=== PATIENT | male | born 1955 | race African-American/Black ===

== ENCOUNTER 2017-09-29 09:04 | Emergency (ER) | payer OTHER ==
[~2017-09-29] VITALS: Ht 175.3 cm; Wt 76.0 kg
[~2017-09-29 09:04] MED LIST: ASPI-1159 PO; CARV25TA47 PO; FURO40TA5 PO; QUET25TA PO; SPIR25TA4 PO; WARF5TAB73 PO
[2017-09-29 09:06] VITALS: BP 128/83
== END 2017-09-29 13:49 | disposition home or self-care (01) ==
LOC: ER 09:12
DX: F43.9 Reaction to severe stress, unspecified (principal); F41.9 Anxiety disorder, unspecified; I11.0 Hypertensive heart disease with heart failure; I50.9 Heart failure, unspecified; E78.00 Pure hypercholesterolemia, unspecified; Z95.5 Presence of coronary angioplasty implant and graft; Z90.49 Acquired absence of other specified parts of digestive tract; Z79.01 Long term (current) use of anticoagulants; Z79.82 Long term (current) use of aspirin
CPT/HCPCS: 99284

== ENCOUNTER 2017-12-15 12:17 | Inpatient (IN) | payer OTHER ==
[~2017-12-15] VITALS: Ht 180.3 cm; Wt 104.3 kg
[2017-12-15 19:16] LABS: HEMATOCRIT. 39.6 % (42.0-52.0); HEMOGLOBIN. 13.4 g/dL (14.0-18.0); MEAN CORPUSCULAR HEMOGLOBIN 29.6 pg (28.0-32.0); MEAN CORPUSCULAR VOLUME 87.4 fL (80.0-94.0); MEAN PLATELET VOLUME 7.6 fl (7.4-10.4); PLATELET 117 x1000/uL (130-400); RED BLOOD CELL COUNT 4.53 mill/uL (4.7-6.1); RED CELL DISTRIBUTION WIDTH 16.1 % (11.6-14.6)
[2017-12-15 19:23] LABS: INR 1.4; PROTHROMBIN TIME 14.9 sec (9.4-11.6)
[2017-12-15 19:28] LABS: CHLORIDE 101 mEq/L (98-107)
[2017-12-15 19:33] LABS: TROPONIN I 0.05 ng/mL (0.00-0.04)
[2017-12-15 20:13] LABS: ATYPICAL LYMPHOCYTES 3
[2017-12-15 20:14] LABS: PLATELET ESTIMATE DECREASED
[2017-12-15] MEDS ORDERED: ENOXAPARIN 40MG/0.4ML SYR SUBCUT SCH (20:45)
[2017-12-15] MEDS ORDERED: DOCUSATE SODIUM 100MG CAPSULE PO PRN (20:45)
[2017-12-15] MEDS ORDERED: CLONIDINE 0.1MG TABLET PO PRN (20:45)
[2017-12-15] MEDS ORDERED: KETOROLAC 15MG/ML VIAL IV PRN (20:45)
[2017-12-15] MEDS ORDERED: NITROGLYCERIN 0.4MG TABLET SL SL PRN (20:45)
[2017-12-15] MEDS ORDERED: ACETAMINOPHEN 325MG TABLET PO PRN (20:45)
[2017-12-15] MEDS ORDERED: LORAZEPAM 0.5MG TABLET PO PRN (20:45)
[2017-12-15] MEDS ORDERED: MAGNESIUM/ALUMINUM HYDROXIDE/SIMETHICONE 30ML UDC PO PRN (20:45)
[2017-12-15] MEDS ORDERED: DIPHENHYDRAMINE 50MG/ML VIAL IV PRN (20:45)
[2017-12-15] MEDS ORDERED: GUAIFENESIN 200MG/10ML SUGAR FREE UDC PO PRN (20:45)
[2017-12-15] MEDS ORDERED: ONDANSETRON HCL 4MG/2ML VIAL IV PRN (20:45)
[2017-12-15 21:49] LABS: TOTAL IRON BINDING CAPACITY 316 ug/dL (250-450)
[2017-12-15 22:21] LABS: FOLIC ACID (FOLATE) SERUM 15.6 ng/mL (>5.38)
[2017-12-15 23:06] LABS: CREATINE KINASE MB FRACTION 0.8 ng/mL (0.5-3.6); TROPONIN I 0.05 ng/mL (0.00-0.04)
[2017-12-16] MEDS ORDERED: ZOLPIDEM TARTRATE 5MG TABLET PO PRN (01:39)
[2017-12-16] MEDS ORDERED: NA PHOS,M-B/NA PHOS,DI-BA ENEMA 118ML PR PRN (01:39)
[2017-12-16 01:45] VITALS: BP 113/85
[2017-12-16] MEDS ORDERED: WARFARIN SODIUM 5MG TABLET PO SCH (02:26)
[2017-12-16 04:00] VITALS: BP 123/73
[2017-12-16] MEDS ORDERED: CARVEDILOL 3.125 MG TABLET PO SCH (06:00)
[2017-12-16 07:38] LABS: INR 1.4; PROTHROMBIN TIME 14.5 sec (9.4-11.6)
[2017-12-16] MEDS: IPRATROPIUM/ALBUTEROL 0.5-3(2.5)MG/3ML NEB INH PRN ×2 (08:13→12:17)
[2017-12-16 08:19] LABS: CREATINE KINASE MB FRACTION 0.8 ng/mL (0.5-3.6); TROPONIN I 0.06 ng/mL (0.00-0.04)
[2017-12-16] MEDS ORDERED: FUROSEMIDE 40MG/4ML VIAL IVP SCH (09:00)
[2017-12-16] MEDS ORDERED: ENOXAPARIN 30MG/0.3ML SYR SUBCUT SCH (09:00)
[2017-12-16] MEDS ORDERED: ASPIRIN 325MG EC TABLET PO SCH (09:00)
[2017-12-16] MEDS ORDERED: SPIRONOLACTONE 25MG TABLET PO SCH (09:00)
[2017-12-16] MEDS ORDERED: FAMOTIDINE 20MG/2ML VIAL IV SCH (09:00)
[2017-12-16 11:42] VITALS: BP 95/69
== END 2017-12-16 12:40 | disposition home or self-care (01) | DRG 291 ==
LOC: ER 15:00 → 8WST 20:50 → EDBEDREQ 21:07 → ENRESERV 22:46
PROVIDERS: ADMIT Internal Medicine; ATTEND Internal Medicine
DX: I11.0 Hypertensive heart disease with heart failure (principal); N17.0 Acute kidney failure with tubular necrosis; E44.1 Mild protein-calorie malnutrition; Z79.01 Long term (current) use of anticoagulants; R07.89 Other chest pain; I50.43 Acute on chronic combined systolic (congestive) and diastolic (congestive) heart failure; E78.00 Pure hypercholesterolemia, unspecified; F41.9 Anxiety disorder, unspecified; D64.9 Anemia, unspecified; Z90.49 Acquired absence of other specified parts of digestive tract; Z79.899 Other long term (current) drug therapy; Z79.82 Long term (current) use of aspirin; Z68.32 Body mass index [BMI] 32.0-32.9, adult
CPT/HCPCS: 36415; 71045; 80053; 80061; 82550; 82553; 82607; 82746; 83036; 83540; 83550; 83880; 84484; 85025; 85610; 93005; 93306; 93970; 99285; C1893; J1650; J1940; J3490; J7620

== ENCOUNTER 2017-12-19 12:26 | Emergency (ER) | payer OTHER ==
[~2017-12-19] VITALS: Ht 180.3 cm; Wt 109.0 kg
[~2017-12-19 12:26] MED LIST changes: +WARF-53 PO; -WARF5TAB73 PO
[2017-12-19 12:33] VITALS: BP 155/89
[2017-12-19] MEDS ORDERED: ASPIRIN 81MG TABLET PO STA (16:02)
== END 2017-12-19 18:16 | disposition left against medical advice (07) ==
LOC: ER 15:29 → CANBEDREQ 18:27
DX: R07.89 Other chest pain (principal); I11.0 Hypertensive heart disease with heart failure; I50.9 Heart failure, unspecified; R55 Syncope and collapse; Z79.01 Long term (current) use of anticoagulants; Z79.82 Long term (current) use of aspirin; I44.7 Left bundle-branch block, unspecified; R94.31 Abnormal electrocardiogram [ECG] [EKG]; E78.00 Pure hypercholesterolemia, unspecified; F41.9 Anxiety disorder, unspecified
CPT/HCPCS: 93005; 99283

== ENCOUNTER 2018-07-12 01:07 | Inpatient (IN) | payer OTHER ==
[~2018-07-12] VITALS: Ht 180.3 cm; Wt 98.0 kg
[~2018-07-12 01:07] MED LIST changes: -QUET25TA PO; -SPIR25TA4 PO; +SPIR25TA6 PO
[2018-07-12] MEDS ORDERED: ASPIRIN 81MG TABLET PO ONE (02:00)
[2018-07-12] MEDS ORDERED: FUROSEMIDE 100MG/10ML VIAL IVP ONE (02:30)
[2018-07-12 03:07] LABS: BASOPHILS % 0.8 % (0.0-2.0); EOSINOPHILS % 1.4 % (0.0-5.0); HEMATOCRIT. 38.6 % (42.0-52.0); HEMOGLOBIN. 13.3 g/dL (14.0-18.0); LYMPHOCYTES % 38.3 % (20.0-50.0); MEAN CORPUSCULAR HEMOGLOBIN 29.5 pg (28.0-32.0); MEAN CORPUSCULAR VOLUME 85.9 fL (80.0-94.0); MEAN PLATELET VOLUME 8.7 fl (7.4-10.4); MONOCYTES % 13.9 % (2.0-8.0); NEUTROPHILS % 45.6 % (40.0-76.0); PLATELET 177 x1000/uL (130-400); RED BLOOD CELL COUNT 4.49 mill/uL (4.7-6.1); RED CELL DISTRIBUTION WIDTH 14.7 % (11.6-14.6)
[2018-07-12 03:10] LABS: INR 1.3; PROTHROMBIN TIME 13.1 sec (9.1-11.1)
[2018-07-12 03:19] LABS: CHLORIDE 105 mEq/L (98-107)
[2018-07-12 03:27] LABS: ETHANOL BLOOD < 10 mg/dL
[2018-07-12] MEDS ORDERED: ACETAMINOPHEN 650MG/20.3ML UDC GT PRN (09:15)
[2018-07-12] MEDS ORDERED: ONDANSETRON HCL 4MG/2ML INJ IV PRN (09:15)
[2018-07-12] MEDS ORDERED: MAGNESIUM/ALUMINUM HYDROXIDE/SIMETHICONE 30ML UDC PO PRN (09:15)
[2018-07-12] MEDS ORDERED: HYDROCODONE/ACETAMINOPHEN 5/325MG TABLET PO PRN (09:15)
[2018-07-12] MEDS ORDERED: ACETAMINOPHEN 650MG SUPP PR PRN (09:15)
[2018-07-12 09:30] VITALS: BP_SYST 141; BP_SYST 142; BP_DIAS 101
[2018-07-12 09:41] LABS: BG BASE EXCESS 2.8 mmol/L (-2.0-2.0); BG CARBOXYHEMOGLOBIN 0.5 % (0.5-1.5); BG DEOXYHEMOGLOBIN 4.7 % (0.0-5.0); BG HCO3 ACT 26.1 mmol/L (22.0-26.0); BG METHEMOGLOBIN 0.4 % (0.0-1.5); BG OXYGEN SATURATION 95.3 % (92.0-98.5); BG OXYHEMOGLOBIN 94.4 % (94.0-97.0); BG PH 7.478 (7.350-7.450); BG PO2 76.3 mmHg (75.0-100.0); BG SAMPLE SITE RIGHT BRACHIAL; BG TOTAL HEMOGLOBIN 14.9 g/dL (12.0-18.0); BG VENT MODE ROOM AIR
[2018-07-12] MEDS: ACETAMINOPHEN 325MG TABLET PO PRN ×2 (11:35→17:13)
[2018-07-12 12:00] VITALS: BP 151/111
[2018-07-12] MEDS: IPRATROPIUM/ALBUTEROL 0.5-3(2.5)MG/3ML NEB INH SCH ×2 (14:00→21:35)
[2018-07-12] MEDS ORDERED: LIDOCAINE HCL/PF 1% 2ML VIAL ONE (14:37)
[2018-07-12] MEDS: FUROSEMIDE 40MG/4ML VIAL IVP SCH (15:49)
[2018-07-12 16:00] VITALS: BP 140/93
[2018-07-12 16:56] LABS: CREATINE KINASE MB FRACTION 1.7 ng/mL (0.5-3.6)
[2018-07-12] MEDS ORDERED: WARFARIN SODIUM 5MG TABLET PO SCH (18:00)
[2018-07-12] MEDS: LORAZEPAM 2MG/ML CPJ IV PRN (18:57)
[2018-07-12 20:00] VITALS: BP 116/62
[2018-07-12] MEDS: CARVEDILOL 6.25 MG TABLET PO SCH (21:00)
[2018-07-12 23:37] LABS: CREATINE KINASE MB FRACTION 1.5 ng/mL (0.5-3.6)
[2018-07-13 00:01] VITALS: BP 125/82
[2018-07-13] MEDS: LORAZEPAM 2MG/ML CPJ IV PRN ×2 (01:01→12:07)
[2018-07-13] MEDS: IPRATROPIUM/ALBUTEROL 0.5-3(2.5)MG/3ML NEB INH SCH ×2 (01:35→08:25)
[2018-07-13 07:46] LABS: BASOPHILS % 0.8 % (0.0-2.0); EOSINOPHILS % 1.2 % (0.0-5.0); HEMATOCRIT. 43.3 % (42.0-52.0); HEMOGLOBIN. 14.8 g/dL (14.0-18.0); LYMPHOCYTES % 32.5 % (20.0-50.0); MEAN CORPUSCULAR HEMOGLOBIN 29.4 pg (28.0-32.0); MEAN PLATELET VOLUME 8.1 fl (7.4-10.4); MONOCYTES % 14.5 % (2.0-8.0); PLATELET 168 x1000/uL (130-400); RED BLOOD CELL COUNT 5.04 mill/uL (4.7-6.1); RED CELL DISTRIBUTION WIDTH 14.5 % (11.6-14.6)
[2018-07-13 08:00] VITALS: BP 155/103
[2018-07-13 08:39] LABS: CHLORIDE 102 mEq/L (98-107)
[2018-07-13 08:54] LABS: PHOSPHORUS 3.6 mg/dL (2.5-4.9)
[2018-07-13 08:57] LABS: HDL CHOLESTEROL 37 mg/dL (40-59)
[2018-07-13 08:58] LABS: LDL CHOLESTEROL 67 mg/dL (5-100)
[2018-07-13] MEDS: FUROSEMIDE 40MG/4ML VIAL IVP SCH ×2 (09:00→09:03)
[2018-07-13] MEDS: CARVEDILOL 6.25 MG TABLET PO SCH (09:03)
[2018-07-13] MEDS ORDERED: SPIRONOLACTONE 25MG TABLET PO SCH (10:30)
[2018-07-13] MEDS ORDERED: LOSARTAN POTASSIUM 100 MG TABLET PO SCH (11:00)
[2018-07-13] MEDS: ACETAMINOPHEN 325MG TABLET PO PRN (11:25)
[2018-07-13 12:00] VITALS: BP 148/107
[2018-07-13] MEDS ORDERED: FURO40TA5 PO (14:30)
[2018-07-13] MEDS ORDERED: SPIR25TA PO (14:30)
[2018-07-13] MEDS ORDERED: COR6 PO (14:30)
[2018-07-13] MEDS ORDERED: WARF5TAB76 PO (14:30)
[2018-07-13] MEDS ORDERED: LOSA100T3 PO (14:30)
[2018-07-13 14:57] VITALS: BP 148/107
[2018-07-14] MEDS ORDERED: FUROSEMIDE 40MG TABLET PO SCH (09:00)
== END 2018-07-13 16:02 | disposition home or self-care (01) | DRG 292 ==
LOC: ER 01:07 → 8WST 04:17 → EDBEDREQTM 04:18 → EDBEDREQ 04:18 → ENRESERV 08:14
PROVIDERS: ADMIT Internal Medicine; ATTEND Internal Medicine
DX: I11.0 Hypertensive heart disease with heart failure (principal); I48.92 Unspecified atrial flutter; R07.89 Other chest pain; I42.9 Cardiomyopathy, unspecified; I25.10 Atherosclerotic heart disease of native coronary artery without angina pectoris; E11.9 Type 2 diabetes mellitus without complications; I48.91 Unspecified atrial fibrillation; J44.9 Chronic obstructive pulmonary disease, unspecified; I50.9 Heart failure, unspecified; Z79.01 Long term (current) use of anticoagulants; Z79.82 Long term (current) use of aspirin; Z79.84 Long term (current) use of oral hypoglycemic drugs; Z90.49 Acquired absence of other specified parts of digestive tract; Z95.5 Presence of coronary angioplasty implant and graft; Z87.891 Personal history of nicotine dependence
CPT/HCPCS: 36415; 36600; 71045; 80053; 80061; 82375; 82550; 82553; 82805; 82962; 83036; 83690; 83735; 83880; 84100; 84439; 84443; 84481; 84484; 85025; 85379; 85610; 85730; 93005; 94640; 96374; 97162; 99285; C1893; G0482; J1940; J2060; J3490; J7620

== ENCOUNTER 2018-07-19 11:42 | Inpatient (IN) | payer OTHER ==
[~2018-07-19] VITALS: Ht 180.3 cm; Wt 98.0 kg
[~2018-07-19 11:42] MED LIST changes: -ASPI-1159 PO; -CARV25TA47 PO; +COR6 PO; +LOSA100T3 PO; +SPIR25TA PO; -SPIR25TA6 PO; -WARF-53 PO; +WARF5TAB76 PO
[2018-07-19 14:09] LABS: EOSINOPHILS % 1.3 % (0.0-5.0); HEMATOCRIT. 43.4 % (42.0-52.0); HEMOGLOBIN. 14.7 g/dL (14.0-18.0); LYMPHOCYTES % 39.4 % (20.0-50.0); MEAN CORPUSCULAR HEMOGLOBIN 29.3 pg (28.0-32.0); MEAN CORPUSCULAR VOLUME 86.5 fL (80.0-94.0); MEAN PLATELET VOLUME 8.5 fl (7.4-10.4); MONOCYTES % 14.2 % (2.0-8.0); NEUTROPHILS % 44.1 % (40.0-76.0); PLATELET 162 x1000/uL (130-400); RED BLOOD CELL COUNT 5.01 mill/uL (4.7-6.1); RED CELL DISTRIBUTION WIDTH 14.6 % (11.6-14.6)
[2018-07-19 14:18] LABS: INR 2.3; PARTIAL THROMBOPLASTIN TIME 38.3 sec (23.4-31.0); PROTHROMBIN TIME 22.7 sec (9.1-11.1)
[2018-07-19 14:19] LABS: CHLORIDE 105 mEq/L (98-107)
[2018-07-19] MEDS ORDERED: FUROSEMIDE 20MG/2ML VIAL IVP ONE (14:45)
[2018-07-19] MEDS ORDERED: ASPIRIN 81MG TABLET PO ONE (15:15)
[2018-07-19 15:59] LABS: CLARITY URINE CLEAR (CLEAR); COLOR URINE YELLOW (YELLOW); KETONES URINE TRACE (NEGATIVE); LEUKOCYTE ESTERASE URINE NEGATIVE (NEGATIVE); NITRITE URINE NEGATIVE (NEGATIVE); OCCULT BLOOD URINE NEGATIVE (NEGATIVE); PH URINE 5.5 (4.5-8.0); PROTEIN URINE NEGATIVE (NEGATIVE); SPECIFIC GRAVITY URINE 1.021 (1.005-1.030)
[2018-07-19 16:47] LABS: *BARBITURATES SCREEN URINE NEGATIVE (NEGATIVE); *BENZODIAZEPINES SCREEN URINE NEGATIVE (NEGATIVE); *COCAINE SCREEN URINE PRESUMTIVE POSITIVE (NEGATIVE)
[2018-07-19 16:48] LABS: *AMPHETAMINES SCREEN URINE PRESUMTIVE POSITIVE (NEGATIVE); CANNABINOID URINE SCREEN NEGATIVE (NEGATIVE); METHADONE URINE SCREEN NEGATIVE (NEGATIVE); OPIATES URINE SCREEN PRESUMTIVE POSITIVE (NEGATIVE)
[2018-07-19 16:49] LABS: PHENCYCLIDINE URINE SCREEN NEGATIVE (NEGATIVE)
[2018-07-19 17:15] VITALS: BP 151/90
[2018-07-19] MEDS ORDERED: ONDANSETRON HCL 4MG/2ML INJ IV PRN (18:45)
[2018-07-19] MEDS ORDERED: CLONIDINE 0.1MG TABLET PO PRN (18:45)
[2018-07-19 18:46] VITALS: BP 150/90
[2018-07-19 20:01] VITALS: BP 130/81
[2018-07-19] MEDS: WARFARIN SODIUM 5MG TABLET PO SCH (20:29)
[2018-07-19] MEDS: ACETAMINOPHEN 325MG TABLET PO PRN (20:29)
[2018-07-19] MEDS: DIPHENHYDRAMINE 50MG/ML VIAL IV PRN (20:29)
[2018-07-19] MEDS: CARVEDILOL 6.25 MG TABLET PO SCH (20:32)
[2018-07-19] MEDS ORDERED: KETOROLAC 30MG/ML VIAL IV PRN ×2 (22:45)
[2018-07-20] VITALS: BP 130/91
[2018-07-20] MEDS: ACETAMINOPHEN 325MG TABLET PO PRN (02:38)
[2018-07-20] MEDS: DIPHENHYDRAMINE 50MG/ML VIAL IV PRN (06:30)
[2018-07-20 06:55] LABS: HEMATOCRIT 42.3 % (42.0-52.0); HEMOGLOBIN 14.3 g/dL (14.0-18.0); MEAN CORPUSCULAR HEMOGLOBIN 29.2 pg (28.0-32.0); MEAN CORPUSCULAR VOLUME 86.3 fL (80.0-94.0); PLATELET 174 x1000/uL (130-400); RED CELL DISTRIBUTION WIDTH 14.7 % (11.6-14.6)
[2018-07-20 07:16] LABS: CHLORIDE 105 mEq/L (98-107)
[2018-07-20 08:00] VITALS: BP 137/97
[2018-07-20] MEDS: CARVEDILOL 6.25 MG TABLET PO SCH (08:59)
[2018-07-20] MEDS: LOSARTAN POTASSIUM 100 MG TABLET PO SCH (09:00)
[2018-07-20] MEDS ORDERED: FUROSEMIDE 40MG TABLET PO SCH (09:00)
[2018-07-20] MEDS ORDERED: INFLUENZA VIRUS VACCINE(AFLURIA) 0.5ML SYR IM ONE (09:00)
[2018-07-20] MEDS ORDERED: SPIRONOLACTONE 25MG TABLET PO SCH (09:00)
[2018-07-20] MEDS ORDERED: ALPRAZOLAM 0.25 MG TABLET PO PRN (11:45)
[2018-07-20 12:00] VITALS: BP 130/71
[2018-07-20] MEDS ORDERED: KETOROLAC 30MG/ML VIAL IV PRN (14:45)
[2018-07-20 16:00] VITALS: BP 139/89
[2018-07-20] MEDS: WARFARIN SODIUM 5MG TABLET PO SCH (17:55)
[2018-07-20 20:00] VITALS: BP 105/56
[2018-07-20] MEDS ORDERED: ATORVASTATIN CALCIUM 40MG TABLET PO SCH (21:00)
[2018-07-21 00:45] VITALS: BP 138/94
[2018-07-21 04:00] VITALS: BP 139/68
[2018-07-21 08:00] VITALS: BP 107/66
[2018-07-21] MEDS: LOSARTAN POTASSIUM 100 MG TABLET PO SCH (08:19)
[2018-07-21] MEDS: ACETAMINOPHEN 325MG TABLET PO PRN (08:20)
[2018-07-21] MEDS ORDERED: ASPIRIN 81MG EC TABLET PO SCH (09:00)
[2018-07-21 09:29] VITALS: BP 107/66
[2018-07-21 12:13] VITALS: BP 135/85
[2018-07-21 12:16] LABS: HEMATOCRIT. 42.2 % (42.0-52.0); HEMOGLOBIN. 14.6 g/dL (14.0-18.0); MEAN CORPUSCULAR HEMOGLOBIN 29.7 pg (28.0-32.0); PLATELET 173 x1000/uL (130-400); RED BLOOD CELL COUNT 4.91 mill/uL (4.7-6.1); RED CELL DISTRIBUTION WIDTH 14.8 % (11.6-14.6)
[2018-07-21 12:26] LABS: INR 2.5; PARTIAL THROMBOPLASTIN TIME 43.6 sec (23.4-31.0); PROTHROMBIN TIME 25.2 sec (9.1-11.1)
[2018-07-21 12:38] LABS: CHLORIDE 107 mEq/L (98-107)
[2018-07-21 13:24] LABS: PLATELET ESTIMATE NORMAL
[2018-07-21] MEDS ORDERED: LIP40 PO (15:21)
[2018-07-21] MEDS ORDERED: ASPI-1158 PO (15:21)
[2018-07-21 17:11] VITALS: BP 131/82
== END 2018-07-21 18:00 | disposition home or self-care (01) | DRG 683 ==
LOC: ER 11:42 → 6WST 15:52 → ENRESERV 15:55 → EDBEDREQ 15:58 → EDBEDREQTM 15:58
PROVIDERS: ADMIT Family Medicine Adult Medicine; ATTEND Family Medicine Adult Medicine
DX: N17.9 Acute kidney failure, unspecified (principal); I48.92 Unspecified atrial flutter; I42.9 Cardiomyopathy, unspecified; I48.91 Unspecified atrial fibrillation; R07.89 Other chest pain; F41.1 Generalized anxiety disorder; I50.9 Heart failure, unspecified; I11.0 Hypertensive heart disease with heart failure; E11.9 Type 2 diabetes mellitus without complications; E78.00 Pure hypercholesterolemia, unspecified; E78.5 Hyperlipidemia, unspecified; F17.210 Nicotine dependence, cigarettes, uncomplicated; I25.10 Atherosclerotic heart disease of native coronary artery without angina pectoris; F14.10 Cocaine abuse, uncomplicated; M10.9 Gout, unspecified; F15.10 Other stimulant abuse, uncomplicated; F11.10 Opioid abuse, uncomplicated; Z79.82 Long term (current) use of aspirin; I25.2 Old myocardial infarction; Z95.5 Presence of coronary angioplasty implant and graft; Z79.899 Other long term (current) drug therapy; Z90.49 Acquired absence of other specified parts of digestive tract; Z79.01 Long term (current) use of anticoagulants
CPT/HCPCS: 36415; 71045; 80048; 80305; 83735; 83880; 84443; 84484; 85027; 93005; 96374; 96375; 99285; C1893; J1200; J1885; J1940

== ENCOUNTER 2018-08-13 10:39 | Inpatient (IN) | payer OTHER ==
[~2018-08-13] VITALS: Ht 180.3 cm; Wt 102.5 kg
[~2018-08-13 10:39] MED LIST changes: +ASPI-1158 PO; +LIP40 PO
[2018-08-13] MEDS ORDERED: SODIUM CHLORIDE 0.9% 1,000 ML IV ONE (10:55)
[2018-08-13 11:31] LABS: BASOPHILS % 0.7 % (0.0-2.0); EOSINOPHILS % 0.8 % (0.0-5.0); HEMOGLOBIN. 13.2 g/dL (14.0-18.0); LYMPHOCYTES % 19.6 % (20.0-50.0); MEAN CORPUSCULAR VOLUME 86.2 fL (80.0-94.0); MONOCYTES % 14.2 % (2.0-8.0); NEUTROPHILS % 64.7 % (40.0-76.0); PLATELET 162 x1000/uL (130-400); RED BLOOD CELL COUNT 4.41 mill/uL (4.7-6.1); RED CELL DISTRIBUTION WIDTH 14.6 % (11.6-14.6)
[2018-08-13 11:43] LABS: CHLORIDE 105 mEq/L (98-107)
[2018-08-13 11:49] LABS: INR 2.1; PARTIAL THROMBOPLASTIN TIME 47.9 sec (23.4-31.0)
[2018-08-13] MEDS ORDERED: FUROSEMIDE 40MG/4ML VIAL IV ONE (12:15)
[2018-08-13] MEDS ORDERED: NITROGLYCERIN OINT 1GM/INCH UDPKT TD ONE (12:15)
[2018-08-13] MEDS ORDERED: NA PHOS,M-B/NA PHOS,DI-BA ENEMA 118ML PR PRN (14:15)
[2018-08-13] MEDS ORDERED: GUAIFENESIN 200MG/10ML SUGAR FREE UDC PO PRN (14:15)
[2018-08-13] MEDS ORDERED: IPRATROPIUM/ALBUTEROL 0.5-3(2.5)MG/3ML NEB INH PRN (14:15)
[2018-08-13] MEDS ORDERED: CLONIDINE 0.1MG TABLET PO PRN (14:15)
[2018-08-13] MEDS ORDERED: ACETAMINOPHEN 650MG/20.3ML UDC GT PRN (14:15)
[2018-08-13] MEDS ORDERED: ACETAMINOPHEN 325MG TABLET PO PRN (14:15)
[2018-08-13] MEDS ORDERED: MAGNESIUM/ALUMINUM HYDROXIDE/SIMETHICONE 30ML UDC PO PRN (14:15)
[2018-08-13] MEDS ORDERED: DEXTROSE 50% WATER 50ML SYRINGE IV PRN (14:15)
[2018-08-13] MEDS ORDERED: ONDANSETRON HCL 4MG/2ML INJ IV PRN (14:15)
[2018-08-13] MEDS ORDERED: ACETAMINOPHEN 650MG SUPP PR PRN (14:15)
[2018-08-13 14:25] LABS: *AMPHETAMINES SCREEN URINE NEGATIVE (NEGATIVE); *BARBITURATES SCREEN URINE NEGATIVE (NEGATIVE); *BENZODIAZEPINES SCREEN URINE NEGATIVE (NEGATIVE); *COCAINE SCREEN URINE PRESUMTIVE POSITIVE (NEGATIVE)
[2018-08-13 14:26] VITALS: BP 115/55
[2018-08-13 14:26] LABS: CANNABINOID URINE SCREEN NEGATIVE (NEGATIVE); METHADONE URINE SCREEN NEGATIVE (NEGATIVE); OPIATES URINE SCREEN NEGATIVE (NEGATIVE); PHENCYCLIDINE URINE SCREEN NEGATIVE (NEGATIVE)
[2018-08-13 14:30] VITALS: BP 115/55
[2018-08-13] MEDS ORDERED: FUROSEMIDE 40MG/4ML VIAL IVP SCH (15:00)
[2018-08-13 16:00] VITALS: BP_SYST 152; BP_SYST 157; BP_DIAS 99
[2018-08-13] MEDS: FUROSEMIDE 40MG/4ML VIAL IVP SCH (16:45)
[2018-08-13] MEDS: BLOOD SUGAR DIAGNOSTIC STRIP TEST SCH ×2 (16:46→21:00)
[2018-08-13] MEDS: SPIRONOLACTONE 25MG TABLET PO SCH (16:46)
[2018-08-13] MEDS: LOSARTAN POTASSIUM 25 MG TABLET PO SCH (16:46)
[2018-08-13] MEDS: HYDROCODONE/ACETAMINOPHEN 5/325MG TABLET PO PRN (16:48)
[2018-08-13] MEDS: POTASSIUM CHLORIDE 20MEQ TABLET SR PO SCH (17:05)
[2018-08-13] MEDS: INSULIN LISPRO 100 UNITS/ML SUBCUT SCH ×2 (17:05→21:00)
[2018-08-13 20:00] VITALS: BP 111/75
[2018-08-13] MEDS: CARVEDILOL 6.25 MG TABLET PO SCH (21:00)
[2018-08-13] MEDS: IPRATROPIUM/ALBUTEROL 0.5-3(2.5)MG/3ML NEB INH SCH (21:14)
[2018-08-13] MEDS: SODIUM CHLORIDE 0.9% INJ 3ML FLUSH IVF SCH (22:08)
[2018-08-14] VITALS (8 sets, daily range): BP systolic 93–154; BP diastolic 50–85
[2018-08-14] MEDS: IPRATROPIUM/ALBUTEROL 0.5-3(2.5)MG/3ML NEB INH SCH ×4 (01:38→21:50)
[2018-08-14] MEDS: INSULIN LISPRO 100 UNITS/ML SUBCUT SCH ×4 (06:25→20:43)
[2018-08-14] MEDS: SODIUM CHLORIDE 0.9% INJ 3ML FLUSH IVF SCH ×3 (06:25→20:44)
[2018-08-14] MEDS: BLOOD SUGAR DIAGNOSTIC STRIP TEST SCH ×4 (06:25→20:43)
[2018-08-14 07:17] LABS: CLARITY URINE CLEAR (CLEAR); COLOR URINE DARK YELLOW (YELLOW); KETONES URINE NEGATIVE (NEGATIVE); LEUKOCYTE ESTERASE URINE NEGATIVE (NEGATIVE); NITRITE URINE NEGATIVE (NEGATIVE); OCCULT BLOOD URINE NEGATIVE (NEGATIVE); PH URINE 5.5 (4.5-8.0); PROTEIN URINE NEGATIVE (NEGATIVE); SPECIFIC GRAVITY URINE 1.019 (1.005-1.030)
[2018-08-14 08:02] LABS: *AMPHETAMINES SCREEN URINE NEGATIVE (NEGATIVE); *BARBITURATES SCREEN URINE NEGATIVE (NEGATIVE); *BENZODIAZEPINES SCREEN URINE NEGATIVE (NEGATIVE); *COCAINE SCREEN URINE PRESUMTIVE POSITIVE (NEGATIVE); CANNABINOID URINE SCREEN NEGATIVE (NEGATIVE); METHADONE URINE SCREEN NEGATIVE (NEGATIVE); OPIATES URINE SCREEN PRESUMTIVE POSITIVE (NEGATIVE); PHENCYCLIDINE URINE SCREEN NEGATIVE (NEGATIVE)
[2018-08-14] MEDS ORDERED: FUROSEMIDE 40MG/4ML VIAL IVP SCH (09:00)
[2018-08-14] MEDS: DOCUSATE SODIUM 100MG CAPSULE PO PRN ×2 (09:19→17:57)
[2018-08-14] MEDS: SPIRONOLACTONE 25MG TABLET PO SCH (09:19)
[2018-08-14] MEDS: CARVEDILOL 6.25 MG TABLET PO SCH ×2 (09:19→20:43)
[2018-08-14] MEDS: FUROSEMIDE 40MG/4ML VIAL IVP SCH ×2 (09:19→17:58)
[2018-08-14] MEDS: POTASSIUM CHLORIDE 20MEQ TABLET SR PO SCH ×2 (09:19→17:57)
[2018-08-14] MEDS: LOSARTAN POTASSIUM 25 MG TABLET PO SCH ×2 (09:19→20:43)
[2018-08-14] MEDS: HYDROCODONE/ACETAMINOPHEN 5/325MG TABLET PO PRN ×2 (13:33→18:39)
[2018-08-14] MEDS ORDERED: WARFARIN SODIUM 5MG TABLET PO SCH (18:00)
[2018-08-14 21:42] LABS: EOSINOPHILS % 2.9 % (0.0-5.0); HEMATOCRIT. 43.3 % (42.0-52.0); HEMOGLOBIN. 14.9 g/dL (14.0-18.0); LYMPHOCYTES % 27.4 % (20.0-50.0); MEAN CORPUSCULAR VOLUME 87.3 fL (80.0-94.0); MEAN PLATELET VOLUME 8.4 fl (7.4-10.4); MONOCYTES % 14.3 % (2.0-8.0); NEUTROPHILS % 54.4 % (40.0-76.0); PLATELET 184 x1000/uL (130-400); RED BLOOD CELL COUNT 4.95 mill/uL (4.7-6.1); RED CELL DISTRIBUTION WIDTH 14.4 % (11.6-14.6)
[2018-08-14 21:54] LABS: CHLORIDE 103 mEq/L (98-107)
[2018-08-14 22:02] LABS: CREATINE KINASE 156 IU/L (39-308); CREATINE KINASE MB FRACTION 1.3 ng/mL (0.5-3.6); HDL CHOLESTEROL 42 mg/dL (40-59); LDL CHOLESTEROL 78 mg/dL (5-100)
[2018-08-15] VITALS: BP 118/73
[2018-08-15] MEDS: HYDROCODONE/ACETAMINOPHEN 5/325MG TABLET PO PRN ×2 (00:08→05:33)
[2018-08-15] MEDS: IPRATROPIUM/ALBUTEROL 0.5-3(2.5)MG/3ML NEB INH SCH ×2 (03:30→10:24)
[2018-08-15 04:00] VITALS: BP 119/74
[2018-08-15] MEDS: SODIUM CHLORIDE 0.9% INJ 3ML FLUSH IVF SCH ×2 (05:35→14:00)
[2018-08-15] MEDS: INSULIN LISPRO 100 UNITS/ML SUBCUT SCH ×2 (05:42→12:15)
[2018-08-15] MEDS: BLOOD SUGAR DIAGNOSTIC STRIP TEST SCH ×2 (05:42→11:45)
[2018-08-15 06:43] LABS: INR 1.8
[2018-08-15 08:00] VITALS: BP 135/91
[2018-08-15] MEDS: CARVEDILOL 6.25 MG TABLET PO SCH (08:47)
[2018-08-15] MEDS: POTASSIUM CHLORIDE 20MEQ TABLET SR PO SCH (08:47)
[2018-08-15] MEDS: SPIRONOLACTONE 25MG TABLET PO SCH (08:47)
[2018-08-15] MEDS: LOSARTAN POTASSIUM 25 MG TABLET PO SCH (08:47)
[2018-08-15] MEDS ORDERED: HYDR50SY PO (09:06)
[2018-08-15] MEDS: FUROSEMIDE 40MG/4ML VIAL IVP SCH (10:25)
[2018-08-15 12:12] VITALS: BP 112/82
[2018-08-15 14:39] VITALS: BP 103/71
[2018-08-15] MEDS ORDERED: WARFARIN SODIUM 7.5MG TABLET PO SCH (18:00)
== END 2018-08-15 15:00 | disposition home or self-care (01) | DRG 391 ==
LOC: ER 10:39 → 5WST 12:34 → ENRESERV 13:20
PROVIDERS: ADMIT Family Medicine; ATTEND Family Medicine
DX: K21.9 Gastro-esophageal reflux disease without esophagitis (principal); I50.23 Acute on chronic systolic (congestive) heart failure; E46 Unspecified protein-calorie malnutrition; I48.92 Unspecified atrial flutter; D68.9 Coagulation defect, unspecified; I42.0 Dilated cardiomyopathy; I11.0 Hypertensive heart disease with heart failure; E11.9 Type 2 diabetes mellitus without complications; J44.9 Chronic obstructive pulmonary disease, unspecified; E66.9 Obesity, unspecified; E78.00 Pure hypercholesterolemia, unspecified; E78.5 Hyperlipidemia, unspecified; F15.90 Other stimulant use, unspecified, uncomplicated; F14.10 Cocaine abuse, uncomplicated; I25.10 Atherosclerotic heart disease of native coronary artery without angina pectoris; I48.2 Chronic atrial fibrillation; Z79.01 Long term (current) use of anticoagulants; Z82.49 Family history of ischemic heart disease and other diseases of the circulatory system; I25.2 Old myocardial infarction; Z90.49 Acquired absence of other specified parts of digestive tract; Z98.61 Coronary angioplasty status; Z68.31 Body mass index [BMI] 31.0-31.9, adult; Z79.899 Other long term (current) drug therapy
CPT/HCPCS: 36415; 71045; 80061; 80305; 82550; 82553; 82962; 83880; 84443; 84484; 93005; 96361; 96374; 99285; J1815; J1940; J7030; J7620

== ENCOUNTER 2018-08-27 07:56 | Inpatient (IN) | payer OTHER ==
[~2018-08-27] VITALS: Ht 180.3 cm; Wt 90.7 kg
[~2018-08-27 07:56] MED LIST changes: +HYDR50SY PO
[2018-08-27 09:24] LABS: BASOPHILS % 1.3 % (0.0-2.0); EOSINOPHILS % 1.9 % (0.0-5.0); HEMATOCRIT. 44.2 % (42.0-52.0); HEMOGLOBIN. 14.9 g/dL (14.0-18.0); LYMPHOCYTES % 43.2 % (20.0-50.0); MEAN CORPUSCULAR HEMOGLOBIN 29.6 pg (28.0-32.0); MEAN CORPUSCULAR VOLUME 87.7 fL (80.0-94.0); MEAN PLATELET VOLUME 7.7 fl (7.4-10.4); MONOCYTES % 14.1 % (2.0-8.0); NEUTROPHILS % 39.5 % (40.0-76.0); PLATELET 226 x1000/uL (130-400); RED BLOOD CELL COUNT 5.04 mill/uL (4.7-6.1); RED CELL DISTRIBUTION WIDTH 14.8 % (11.6-14.6)
[2018-08-27 09:25] LABS: CHLORIDE 106 mEq/L (98-107)
[2018-08-27] MEDS ORDERED: ASPIRIN 325MG EC TABLET PO ONE (10:00)
[2018-08-27 12:00] VITALS: BP 111/68
[2018-08-27 14:15] VITALS: BP 111/68
[2018-08-27] MEDS ORDERED: ONDANSETRON HCL 4MG/2ML INJ IV PRN (18:00)
[2018-08-27] MEDS ORDERED: DOCUSATE SODIUM 100MG CAPSULE PO PRN (18:00)
[2018-08-27] MEDS ORDERED: CLONIDINE 0.1MG TABLET PO PRN (18:00)
[2018-08-27] MEDS ORDERED: ACETAMINOPHEN 325MG TABLET PO PRN (18:00)
[2018-08-27] MEDS ORDERED: MAGNESIUM/ALUMINUM HYDROXIDE/SIMETHICONE 30ML UDC PO PRN (18:00)
[2018-08-27] MEDS ORDERED: HYDROCODONE/ACETAMINOPHEN 5/325MG TABLET PO PRN (18:00)
[2018-08-27 20:00] VITALS: BP 110/80
[2018-08-27 20:15] LABS: INR 1.8; PROTHROMBIN TIME 18.4 sec (9.1-11.1)
[2018-08-27 20:29] LABS: CREATINE KINASE MB FRACTION 2.2 ng/mL (0.5-3.6)
[2018-08-27] MEDS: CARVEDILOL 6.25 MG TABLET PO SCH (20:52)
[2018-08-27] MEDS: ATORVASTATIN CALCIUM 40MG TABLET PO SCH (20:52)
[2018-08-27] MEDS ORDERED: WARFARIN SODIUM 5MG TABLET PO NR (21:30)
[2018-08-27] MEDS: IPRATROPIUM/ALBUTEROL 0.5-3(2.5)MG/3ML NEB INH PRN (21:45)
[2018-08-28] VITALS: BP 138/72
[2018-08-28] MEDS: LORAZEPAM 2MG/ML CPJ IV PRN ×3 (02:39→21:12)
[2018-08-28 04:00] VITALS: BP 128/77
[2018-08-28 05:59] LABS: INR 1.9; PROTHROMBIN TIME 18.8 sec (9.1-11.1)
[2018-08-28 06:27] LABS: BASOPHILS % 0.5 % (0.0-2.0); EOSINOPHILS % 1.9 % (0.0-5.0); HEMATOCRIT. 39.7 % (42.0-52.0); HEMOGLOBIN. 13.6 g/dL (14.0-18.0); LYMPHOCYTES % 39.8 % (20.0-50.0); MEAN CORPUSCULAR HEMOGLOBIN 29.9 pg (28.0-32.0); MEAN CORPUSCULAR VOLUME 87.5 fL (80.0-94.0); MEAN PLATELET VOLUME 8.1 fl (7.4-10.4); NEUTROPHILS % 45.8 % (40.0-76.0); PLATELET 221 x1000/uL (130-400); RED BLOOD CELL COUNT 4.54 mill/uL (4.7-6.1); RED CELL DISTRIBUTION WIDTH 14.9 % (11.6-14.6)
[2018-08-28 07:08] LABS: CHLORIDE 104 mEq/L (98-107)
[2018-08-28 07:22] LABS: HDL CHOLESTEROL 34 mg/dL (40-59); T4 FREE 1.02 ng/dL (0.76-1.46)
[2018-08-28 07:24] LABS: CREATINE KINASE MB FRACTION 2.2 ng/mL (0.5-3.6)
[2018-08-28 07:25] LABS: CREATINE KINASE 120 IU/L (39-308); LDL CHOLESTEROL 46 mg/dL (5-100)
[2018-08-28 08:00] VITALS: BP 120/84
[2018-08-28] MEDS: FUROSEMIDE 40MG/4ML VIAL IV SCH (09:29)
[2018-08-28] MEDS: ASPIRIN 81MG EC TABLET PO SCH (09:30)
[2018-08-28] MEDS: LOSARTAN POTASSIUM 100 MG TABLET PO SCH (09:30)
[2018-08-28] MEDS: SPIRONOLACTONE 25MG TABLET PO SCH (09:30)
[2018-08-28] MEDS: CARVEDILOL 6.25 MG TABLET PO SCH ×2 (09:30→21:00)
[2018-08-28 16:00] VITALS: BP 127/89
[2018-08-28] MEDS ORDERED: WARFARIN SODIUM 5MG TABLET PO SCH (18:00)
[2018-08-28 20:00] VITALS: BP 97/76
[2018-08-28] MEDS: ATORVASTATIN CALCIUM 40MG TABLET PO SCH (21:12)
[2018-08-29] VITALS: BP 144/93
[2018-08-29 04:00] VITALS: BP 131/79
[2018-08-29 08:00] VITALS: BP_SYST 104; BP_SYST 114; BP_DIAS 74
[2018-08-29] MEDS: FUROSEMIDE 40MG/4ML VIAL IV SCH ×2 (08:42→17:58)
[2018-08-29] MEDS: CARVEDILOL 6.25 MG TABLET PO SCH (08:42)
[2018-08-29] MEDS: LOSARTAN POTASSIUM 100 MG TABLET PO SCH (08:43)
[2018-08-29] MEDS: ASPIRIN 81MG EC TABLET PO SCH (08:43)
[2018-08-29] MEDS: SPIRONOLACTONE 25MG TABLET PO SCH (08:43)
[2018-08-29 12:00] VITALS: BP 131/92
[2018-08-29] MEDS: DILTIAZEM HCL 30MG TABLET PO SCH (14:22)
[2018-08-29] MEDS: IPRATROPIUM/ALBUTEROL 0.5-3(2.5)MG/3ML NEB INH PRN (15:36)
[2018-08-29] MEDS: LORAZEPAM 2MG/ML CPJ IV PRN ×2 (15:42→20:25)
[2018-08-29 16:00] VITALS: BP 117/75
[2018-08-29 16:14] LABS: PROTHROMBIN TIME 19.8 sec (9.1-11.1)
[2018-08-29] MEDS ORDERED: WARFARIN SODIUM 5MG TABLET PO SCH (18:00)
[2018-08-29 20:00] VITALS: BP 110/72
[2018-08-29] MEDS: ATORVASTATIN CALCIUM 40MG TABLET PO SCH (20:25)
[2018-08-29 23:05] LABS: *AMPHETAMINES SCREEN URINE NEGATIVE (NEGATIVE); *BARBITURATES SCREEN URINE NEGATIVE (NEGATIVE); *BENZODIAZEPINES SCREEN URINE NEGATIVE (NEGATIVE); *COCAINE SCREEN URINE NEGATIVE (NEGATIVE)
[2018-08-29 23:06] LABS: CANNABINOID URINE SCREEN NEGATIVE (NEGATIVE); METHADONE URINE SCREEN NEGATIVE (NEGATIVE); OPIATES URINE SCREEN NEGATIVE (NEGATIVE); PHENCYCLIDINE URINE SCREEN NEGATIVE (NEGATIVE)
[2018-08-30] VITALS: BP 112/61
[2018-08-30] MEDS: DILTIAZEM HCL 30MG TABLET PO SCH ×2 (01:20→06:53)
[2018-08-30] MEDS: LORAZEPAM 2MG/ML CPJ IV PRN ×2 (02:06→08:23)
[2018-08-30 04:00] VITALS: BP 123/99
[2018-08-30 08:15] VITALS: BP 96/63
[2018-08-30] MEDS: LOSARTAN POTASSIUM 100 MG TABLET PO SCH (09:59)
[2018-08-30] MEDS: SPIRONOLACTONE 25MG TABLET PO SCH (09:59)
[2018-08-30] MEDS: ASPIRIN 81MG EC TABLET PO SCH (09:59)
[2018-08-30] MEDS: FUROSEMIDE 40MG/4ML VIAL IV SCH (09:59)
[2018-08-30 10:00] VITALS: BP 114/76
[2018-08-30 12:20] VITALS: BP 114/76
== END 2018-08-30 15:10 | disposition home or self-care (01) | DRG 291 ==
LOC: ER 07:56 → EDBEDREQTM 12:10 → EDBEDREQ 12:10 → ENRESERV 12:22 → 5WST 13:06
PROVIDERS: ADMIT Internal Medicine; ATTEND Internal Medicine
DX: I13.0 Hypertensive heart and chronic kidney disease with heart failure and stage 1 through stage 4 chronic kidney disease, or unspecified chronic kidney disease (principal); I50.23 Acute on chronic systolic (congestive) heart failure; E46 Unspecified protein-calorie malnutrition; I48.92 Unspecified atrial flutter; F19.10 Other psychoactive substance abuse, uncomplicated; I42.0 Dilated cardiomyopathy; E11.22 Type 2 diabetes mellitus with diabetic chronic kidney disease; E66.9 Obesity, unspecified; E78.00 Pure hypercholesterolemia, unspecified; E78.5 Hyperlipidemia, unspecified; I25.10 Atherosclerotic heart disease of native coronary artery without angina pectoris; I48.91 Unspecified atrial fibrillation; J44.9 Chronic obstructive pulmonary disease, unspecified; N18.9 Chronic kidney disease, unspecified; F14.10 Cocaine abuse, uncomplicated; I25.2 Old myocardial infarction; Z79.01 Long term (current) use of anticoagulants; Z91.19 Patient's noncompliance with other medical treatment and regimen; Z79.82 Long term (current) use of aspirin; Z79.899 Other long term (current) drug therapy; Z90.49 Acquired absence of other specified parts of digestive tract; Z79.84 Long term (current) use of oral hypoglycemic drugs; Z68.27 Body mass index [BMI] 27.0-27.9, adult; Z82.49 Family history of ischemic heart disease and other diseases of the circulatory system
CPT/HCPCS: 36415; 71045; 80061; 80305; 82550; 82553; 83880; 84439; 84443; 84484; 93005; 93970; 94640; 99285; J1940; J2060; J7620

== ENCOUNTER 2018-09-11 06:13 | Inpatient (IN) | payer OTHER ==
[~2018-09-11] VITALS: Ht 180.3 cm
[2018-09-11 09:01] LABS: HEMATOCRIT. 42.5 % (42.0-52.0); HEMOGLOBIN. 14.5 g/dL (14.0-18.0); MEAN CORPUSCULAR HEMOGLOBIN 29.6 pg (28.0-32.0); MEAN CORPUSCULAR VOLUME 86.9 fL (80.0-94.0); MEAN PLATELET VOLUME 7.9 fl (7.4-10.4); PLATELET 173 x1000/uL (130-400); RED BLOOD CELL COUNT 4.89 mill/uL (4.7-6.1); RED CELL DISTRIBUTION WIDTH 14.6 % (11.6-14.6)
[2018-09-11 09:05] LABS: CHLORIDE 105 mEq/L (98-107)
[2018-09-11 09:07] LABS: INR 2.8; PARTIAL THROMBOPLASTIN TIME 46.7 sec (23.4-31.0); PROTHROMBIN TIME 28.1 sec (9.1-11.1)
[2018-09-11 09:32] LABS: PLATELET ESTIMATE NORMAL
[2018-09-11 10:02] LABS: CLARITY URINE CLEAR (CLEAR); COLOR URINE YELLOW (YELLOW); KETONES URINE NEGATIVE (NEGATIVE); LEUKOCYTE ESTERASE URINE NEGATIVE (NEGATIVE); NITRITE URINE NEGATIVE (NEGATIVE); OCCULT BLOOD URINE NEGATIVE (NEGATIVE); PROTEIN URINE NEGATIVE (NEGATIVE); SPECIFIC GRAVITY URINE 1.025 (1.005-1.030)
[2018-09-11] MEDS ORDERED: FUROSEMIDE 40MG/4ML VIAL IVP ONE (10:15)
[2018-09-11 10:22] LABS: *AMPHETAMINES SCREEN URINE NEGATIVE (NEGATIVE); *BARBITURATES SCREEN URINE NEGATIVE (NEGATIVE); *BENZODIAZEPINES SCREEN URINE NEGATIVE (NEGATIVE); *COCAINE SCREEN URINE NEGATIVE (NEGATIVE); METHADONE URINE SCREEN NEGATIVE (NEGATIVE); OPIATES URINE SCREEN PRESUMTIVE POSITIVE (NEGATIVE); PHENCYCLIDINE URINE SCREEN NEGATIVE (NEGATIVE)
[2018-09-11 10:23] LABS: CANNABINOID URINE SCREEN NEGATIVE (NEGATIVE)
[2018-09-11] MEDS ORDERED: ENOXAPARIN 40MG/0.4ML SYR SUBCUT SCH (21:45)
[2018-09-11] MEDS ORDERED: MAGNESIUM/ALUMINUM HYDROXIDE/SIMETHICONE 30ML UDC PO PRN (21:45)
[2018-09-11] MEDS ORDERED: ACETAMINOPHEN 325MG TABLET PO PRN (21:45)
[2018-09-11] MEDS ORDERED: DIPHENHYDRAMINE 50MG/ML VIAL IV PRN (21:45)
[2018-09-11] MEDS ORDERED: CLONIDINE 0.1MG TABLET PO PRN (21:45)
[2018-09-11] MEDS ORDERED: ONDANSETRON HCL 4MG/2ML INJ IV PRN (21:45)
[2018-09-11] MEDS ORDERED: GUAIFENESIN 200MG/10ML SUGAR FREE UDC PO PRN (21:45)
[2018-09-11] MEDS ORDERED: NA PHOS,M-B/NA PHOS,DI-BA ENEMA 118ML PR PRN (21:45)
[2018-09-11] MEDS ORDERED: IPRATROPIUM/ALBUTEROL 0.5-3(2.5)MG/3ML NEB INH PRN (21:45)
[2018-09-11] MEDS ORDERED: DOCUSATE SODIUM 100MG CAPSULE PO PRN (21:45)
[2018-09-11 22:10] VITALS: BP 138/66
[2018-09-11] MEDS: MORPHINE SULFATE 10MG/5ML ORAL SOLN UDC PO PRN (22:36)
[2018-09-12 00:14] VITALS: BP 130/73
[2018-09-12 01:13] LABS: CHLORIDE 105 mEq/L (98-107)
[2018-09-12] MEDS: MORPHINE SULFATE 10MG/5ML ORAL SOLN UDC PO PRN (03:25)
[2018-09-12 04:00] VITALS: BP 136/82
[2018-09-12] MEDS ORDERED: BENZ1TAB7 MT (06:56)
[2018-09-12] MEDS ORDERED: ALLO100T PO (06:56)
[2018-09-12 08:00] VITALS: BP 109/67
[2018-09-12] MEDS: FUROSEMIDE 40MG/4ML VIAL IV SCH ×2 (08:46→17:43)
[2018-09-12] MEDS: ASPIRIN 81MG EC TABLET PO SCH (08:47)
[2018-09-12 12:00] VITALS: BP 126/70
[2018-09-12 16:00] VITALS: BP 100/66
[2018-09-12] MEDS: HYDROCODONE/ACETAMINOPHEN 5/325MG TABLET PO PRN ×3 (16:05→20:15)
[2018-09-12 17:32] LABS: HEMOGLOBIN. 14.4 g/dL (14.0-18.0); MEAN CORPUSCULAR HEMOGLOBIN 29.6 pg (28.0-32.0); MEAN CORPUSCULAR VOLUME 86.8 fL (80.0-94.0); PLATELET 162 x1000/uL (130-400); RED BLOOD CELL COUNT 4.84 mill/uL (4.7-6.1); RED CELL DISTRIBUTION WIDTH 14.3 % (11.6-14.6)
[2018-09-12 17:41] LABS: CHLORIDE 102 mEq/L (98-107)
[2018-09-12 17:46] LABS: PLATELET ESTIMATE NORMAL
[2018-09-12 17:50] LABS: CREATINE KINASE MB FRACTION 1.1 ng/mL (0.5-3.6); LDL CHOLESTEROL 49 mg/dL (5-100)
[2018-09-12 17:51] LABS: HDL CHOLESTEROL 41 mg/dL (40-59); T4 FREE 1.06 ng/dL (0.76-1.46)
[2018-09-12] MEDS: IPRATROPIUM BROMIDE (0.02%) 0.5MG/2.5ML NEB HHN SCH ×2 (17:55→20:49)
[2018-09-12] MEDS ORDERED: WARFARIN SODIUM 5MG TABLET PO SCH (18:00)
[2018-09-12 20:00] VITALS: BP 129/80
[2018-09-13] VITALS: BP 130/80
[2018-09-13 00:46] LABS: CREATINE KINASE MB FRACTION 1.2 ng/mL (0.5-3.6)
[2018-09-13] MEDS: IPRATROPIUM BROMIDE (0.02%) 0.5MG/2.5ML NEB HHN SCH ×4 (01:14→21:38)
[2018-09-13] MEDS: MORPHINE SULFATE 10MG/5ML ORAL SOLN UDC PO PRN ×2 (03:15→20:22)
[2018-09-13 04:00] VITALS: BP 115/79
[2018-09-13] MEDS: LORAZEPAM 2MG/ML CPJ IV PRN ×2 (04:42→15:01)
[2018-09-13] MEDS: ASPIRIN 81MG EC TABLET PO SCH (09:02)
[2018-09-13] MEDS: FUROSEMIDE 40MG/4ML VIAL IV SCH ×2 (09:02→18:54)
[2018-09-13] MEDS: HYDROCODONE/ACETAMINOPHEN 5/325MG TABLET PO PRN (09:08)
[2018-09-13 12:00] VITALS: BP 129/91
[2018-09-13 13:30] LABS: HEMATOCRIT. 42.4 % (42.0-52.0); HEMOGLOBIN. 14.5 g/dL (14.0-18.0); INR 1.6; MEAN CORPUSCULAR HEMOGLOBIN 29.8 pg (28.0-32.0); MEAN CORPUSCULAR VOLUME 86.9 fL (80.0-94.0); MEAN PLATELET VOLUME 8.6 fl (7.4-10.4); PLATELET 157 x1000/uL (130-400); PROTHROMBIN TIME 16.1 sec (9.1-11.1); RED BLOOD CELL COUNT 4.88 mill/uL (4.7-6.1); RED CELL DISTRIBUTION WIDTH 14.3 % (11.6-14.6)
[2018-09-13 13:35] LABS: CHLORIDE 100 mEq/L (98-107)
[2018-09-13 13:45] LABS: CREATINE KINASE 93 IU/L (39-308)
[2018-09-13 13:50] LABS: CREATINE KINASE MB FRACTION 1.4 ng/mL (0.5-3.6)
[2018-09-13 14:13] LABS: PLATELET ESTIMATE NORMAL
[2018-09-13] MEDS: CARVEDILOL 3.125 MG TABLET PO SCH ×2 (15:07→20:21)
[2018-09-13 16:00] VITALS: BP 148/82
[2018-09-13] MEDS ORDERED: WARFARIN SODIUM 5MG TABLET PO NR (18:00)
[2018-09-13 20:00] VITALS: BP 133/104
[2018-09-14 00:10] VITALS: BP 118/79
[2018-09-14] MEDS: IPRATROPIUM BROMIDE (0.02%) 0.5MG/2.5ML NEB HHN SCH (01:00)
[2018-09-14 04:00] VITALS: BP 141/92
[2018-09-14 07:46] VITALS: BP 97/70
[2018-09-14 07:48] LABS: HEMATOCRIT. 44.9 % (42.0-52.0); HEMOGLOBIN. 15.3 g/dL (14.0-18.0); MEAN CORPUSCULAR HEMOGLOBIN 29.5 pg (28.0-32.0); MEAN CORPUSCULAR VOLUME 86.4 fL (80.0-94.0); MEAN PLATELET VOLUME 8.3 fl (7.4-10.4); PLATELET 174 x1000/uL (130-400); RED BLOOD CELL COUNT 5.19 mill/uL (4.7-6.1); RED CELL DISTRIBUTION WIDTH 14.5 % (11.6-14.6)
[2018-09-14 07:53] LABS: INR 1.5
[2018-09-14 08:09] LABS: CHLORIDE 100 mEq/L (98-107)
[2018-09-14] MEDS: ASPIRIN 81MG EC TABLET PO SCH (09:37)
[2018-09-14] MEDS: FUROSEMIDE 40MG/4ML VIAL IV SCH (09:37)
[2018-09-14] MEDS: CARVEDILOL 3.125 MG TABLET PO SCH (09:40)
[2018-09-14 09:41] VITALS: BP 122/76
[2018-09-14 11:37] LABS: PLATELET ESTIMATE NORMAL
[2018-09-14 12:37] VITALS: BP 139/82
[2018-09-14] MEDS ORDERED: WARFARIN SODIUM 3MG TABLET PO NR (18:00)
== END 2018-09-14 13:55 | disposition home or self-care (01) | DRG 291 ==
LOC: ER 07:45 → 8WST 10:32 → EDBEDREQ 10:36 → EDBEDREQTM 10:36 → ENRESERV 19:46
PROVIDERS: ADMIT Internal Medicine; ATTEND Internal Medicine
DX: I11.0 Hypertensive heart disease with heart failure (principal); J96.00 Acute respiratory failure, unspecified whether with hypoxia or hypercapnia; I48.92 Unspecified atrial flutter; I50.23 Acute on chronic systolic (congestive) heart failure; I48.91 Unspecified atrial fibrillation; F10.10 Alcohol abuse, uncomplicated; F14.10 Cocaine abuse, uncomplicated; E11.9 Type 2 diabetes mellitus without complications; E78.00 Pure hypercholesterolemia, unspecified; E78.5 Hyperlipidemia, unspecified; F12.90 Cannabis use, unspecified, uncomplicated; F17.200 Nicotine dependence, unspecified, uncomplicated; F41.9 Anxiety disorder, unspecified; M10.9 Gout, unspecified; I25.10 Atherosclerotic heart disease of native coronary artery without angina pectoris; I25.2 Old myocardial infarction; Z79.01 Long term (current) use of anticoagulants; Z95.5 Presence of coronary angioplasty implant and graft; Z90.49 Acquired absence of other specified parts of digestive tract
CPT/HCPCS: 36415; 71045; 73630; 80048; 80061; 80305; 82550; 82553; 83036; 83735; 83880; 84439; 84443; 84484; 85379; 93005; 93306; 96374; 97162; 99285; C1893; J1940; J2060

== ENCOUNTER 2018-09-24 07:10 | Inpatient (IN) | payer OTHER ==
[~2018-09-24] VITALS: Ht 180.3 cm; Wt 100.7 kg
[~2018-09-24 07:10] MED LIST changes: +ALLO100T PO; +BENZ1TAB7 MT
[2018-09-24] MEDS ORDERED: ASPIRIN 81MG TABLET PO ONE (08:00)
[2018-09-24] MEDS ORDERED: FUROSEMIDE 40MG/4ML VIAL IV ONE (08:00)
[2018-09-24 08:26] LABS: BASOPHILS % 1.3 % (0.0-2.0); EOSINOPHILS % 1.5 % (0.0-5.0); HEMATOCRIT. 40.6 % (42.0-52.0); HEMOGLOBIN. 13.7 g/dL (14.0-18.0); LYMPHOCYTES % 35.4 % (20.0-50.0); MEAN CORPUSCULAR HEMOGLOBIN 29.3 pg (28.0-32.0); MEAN PLATELET VOLUME 8.1 fl (7.4-10.4); MONOCYTES % 12.2 % (2.0-8.0); NEUTROPHILS % 49.6 % (40.0-76.0); PLATELET 214 x1000/uL (130-400); RED BLOOD CELL COUNT 4.66 mill/uL (4.7-6.1); RED CELL DISTRIBUTION WIDTH 14.3 % (11.6-14.6)
[2018-09-24 09:05] LABS: CHLORIDE 108 mEq/L (98-107)
[2018-09-24 09:08] LABS: INR 1.7; PARTIAL THROMBOPLASTIN TIME 37.1 sec (23.4-31.0)
[2018-09-24 09:09] LABS: *AMPHETAMINES SCREEN URINE NEGATIVE (NEGATIVE)
[2018-09-24 09:11] LABS: *BARBITURATES SCREEN URINE NEGATIVE (NEGATIVE); *BENZODIAZEPINES SCREEN URINE NEGATIVE (NEGATIVE); *COCAINE SCREEN URINE NEGATIVE (NEGATIVE); CANNABINOID URINE SCREEN NEGATIVE (NEGATIVE); METHADONE URINE SCREEN NEGATIVE (NEGATIVE); OPIATES URINE SCREEN NEGATIVE (NEGATIVE); PHENCYCLIDINE URINE SCREEN NEGATIVE (NEGATIVE)
[2018-09-24 09:14] LABS: ETHANOL BLOOD < 10 mg/dL
[2018-09-24] MEDS ORDERED: HYDROCODONE/ACETAMINOPHEN 5/325MG TABLET PO ONE (09:15)
[2018-09-24] MEDS ORDERED: LEVOFLOXACIN 750MG PREMIX 150 ML IV ONE (12:30)
[2018-09-24] MEDS ORDERED: LORAZEPAM 2MG/ML CPJ IV ONE (14:00)
[2018-09-24] MEDS ORDERED: MAGNESIUM/ALUMINUM HYDROXIDE/SIMETHICONE 30ML UDC PO PRN (16:00)
[2018-09-24] MEDS ORDERED: IPRATROPIUM/ALBUTEROL 0.5-3(2.5)MG/3ML NEB INH PRN (16:00)
[2018-09-24] MEDS ORDERED: GUAIFENESIN 200MG/10ML SUGAR FREE UDC PO PRN (16:00)
[2018-09-24] MEDS: SPIRONOLACTONE 25MG TABLET PO SCH (17:08)
[2018-09-24] MEDS: CARVEDILOL 6.25 MG TABLET PO SCH (17:08)
[2018-09-24 17:29] VITALS: BP 145/125
[2018-09-24 17:48] VITALS: BP 147/125
[2018-09-24] MEDS ORDERED: WARFARIN SODIUM 5MG TABLET PO NR (18:00)
[2018-09-24 20:00] VITALS: BP 112/37
[2018-09-24] MEDS: LORAZEPAM 2MG/ML CPJ IV PRN (23:00)
[2018-09-25] MEDS: CLONIDINE 0.1MG TABLET PO PRN (00:40)
[2018-09-25 00:49] VITALS: BP 141/98
[2018-09-25 04:00] VITALS: BP 114/71
[2018-09-25] MEDS: LORAZEPAM 2MG/ML CPJ IV PRN ×2 (06:39→16:49)
[2018-09-25 06:59] LABS: BASOPHILS % 0.8 % (0.0-2.0); EOSINOPHILS % 1.8 % (0.0-5.0); HEMATOCRIT. 38.8 % (42.0-52.0); LYMPHOCYTES % 28.9 % (20.0-50.0); MEAN CORPUSCULAR HEMOGLOBIN 29.1 pg (28.0-32.0); MEAN PLATELET VOLUME 7.9 fl (7.4-10.4); MONOCYTES % 12.7 % (2.0-8.0); NEUTROPHILS % 55.8 % (40.0-76.0); PLATELET 202 x1000/uL (130-400); RED BLOOD CELL COUNT 4.46 mill/uL (4.7-6.1); RED CELL DISTRIBUTION WIDTH 13.9 % (11.6-14.6)
[2018-09-25 08:00] VITALS: BP 130/61
[2018-09-25] MEDS: DOCUSATE SODIUM 100MG CAPSULE PO PRN (08:10)
[2018-09-25] MEDS: AMLODIPINE 10MG TABLET PO SCH (08:10)
[2018-09-25] MEDS: FUROSEMIDE 40MG/4ML VIAL IV SCH (08:10)
[2018-09-25] MEDS: SPIRONOLACTONE 25MG TABLET PO SCH (08:11)
[2018-09-25] MEDS: CARVEDILOL 6.25 MG TABLET PO SCH ×2 (08:11→16:48)
[2018-09-25 11:00] LABS: CHLORIDE 106 mEq/L (98-107)
[2018-09-25 12:25] VITALS: BP 118/60
[2018-09-25 16:00] VITALS: BP 121/91
[2018-09-25 16:08] LABS: INR 1.7; PROTHROMBIN TIME 17.4 sec (9.1-11.1)
[2018-09-25] MEDS ORDERED: WARFARIN SODIUM 3MG TABLET PO NR (17:00)
[2018-09-25 20:00] VITALS: BP 109/69
[2018-09-25] MEDS: ACETAMINOPHEN 325MG TABLET PO PRN (21:26)
[2018-09-26] VITALS: BP 131/59
[2018-09-26] MEDS: LORAZEPAM 2MG/ML CPJ IV PRN ×2 (01:27→17:34)
[2018-09-26 04:00] VITALS: BP 108/72
[2018-09-26] MEDS: DOCUSATE SODIUM 100MG CAPSULE PO PRN ×2 (08:15→20:17)
[2018-09-26] MEDS: FUROSEMIDE 40MG/4ML VIAL IV SCH (08:15)
[2018-09-26 16:09] LABS: INR 1.7; PROTHROMBIN TIME 17.4 sec (9.1-11.1)
[2018-09-26] MEDS: CARVEDILOL 6.25 MG TABLET PO SCH ×2 (17:00→18:00)
[2018-09-26] MEDS: ACETAMINOPHEN 325MG TABLET PO PRN (17:26)
[2018-09-26] MEDS: SPIRONOLACTONE 25MG TABLET PO SCH (18:00)
[2018-09-26] MEDS: AMLODIPINE 10MG TABLET PO SCH (18:00)
[2018-09-26 20:00] VITALS: BP 137/84
[2018-09-26] MEDS ORDERED: WARFARIN SODIUM 7.5MG TABLET PO NR (20:00)
[2018-09-26] MEDS ORDERED: HYDROMORPHONE HCL/PF 2MG/ML CPJ IV PRN (20:15)
[2018-09-26] MEDS: ONDANSETRON HCL 4MG/2ML INJ IV PRN (23:47)
[2018-09-27] VITALS: BP 128/90
[2018-09-27 04:00] VITALS: BP 135/94
[2018-09-27] MEDS: CLONIDINE 0.1MG TABLET PO PRN (05:27)
[2018-09-27 08:00] VITALS: BP 122/72
[2018-09-27] MEDS: AMLODIPINE 10MG TABLET PO SCH (08:45)
[2018-09-27] MEDS: SPIRONOLACTONE 25MG TABLET PO SCH (08:45)
[2018-09-27] MEDS: FUROSEMIDE 40MG/4ML VIAL IV SCH (08:45)
[2018-09-27] MEDS: CARVEDILOL 6.25 MG TABLET PO SCH (08:46)
[2018-09-27 11:14] VITALS: BP 120/75
[2018-09-27 12:00] VITALS: BP 110/85
[2018-09-27] MEDS: ACETAMINOPHEN 325MG TABLET PO PRN (12:18)
[2018-09-27] MEDS: ONDANSETRON HCL 4MG/2ML INJ IV PRN (13:00)
== END 2018-09-27 15:06 | disposition home health service (06) | DRG 292 ==
LOC: ER 08:30 → 7WST 12:55 → EDBEDREQ 13:01 → ENRESERV 15:30
PROVIDERS: ADMIT Hospitalist; ATTEND Hospitalist
DX: I11.0 Hypertensive heart disease with heart failure (principal); E44.1 Mild protein-calorie malnutrition; D68.59 Other primary thrombophilia; I50.33 Acute on chronic diastolic (congestive) heart failure; I48.91 Unspecified atrial fibrillation; I25.10 Atherosclerotic heart disease of native coronary artery without angina pectoris; J44.9 Chronic obstructive pulmonary disease, unspecified; Z91.14 Patient's other noncompliance with medication regimen; Z95.5 Presence of coronary angioplasty implant and graft; Z90.49 Acquired absence of other specified parts of digestive tract; Z68.31 Body mass index [BMI] 31.0-31.9, adult
CPT/HCPCS: 36415; 71045; 80305; 83605; 83880; 84484; 93005; 93970; 96365; 96375; 99285; C1893; G0482; J1170; J1940; J1956; J2060; J2405; J7620

== ENCOUNTER 2018-10-11 19:33 | Inpatient (IN) | payer OTHER ==
[~2018-10-11] VITALS: Ht 180.3 cm; Wt 99.8 kg
[2018-10-11] MEDS ORDERED: FUROSEMIDE 40MG/4ML VIAL IV ONE (20:15)
[2018-10-11] MEDS ORDERED: NITROGLYCERIN OINT 1GM/INCH UDPKT TD ONE (20:15)
[2018-10-11] MEDS ORDERED: MORPHINE SULFATE 10 MG/ML CPJ IV ONE (20:30)
[2018-10-11] MEDS ORDERED: LORAZEPAM 2MG/ML CPJ IV ONE (21:45)
[2018-10-11 22:19] LABS: CHLORIDE 106 mEq/L (98-107)
[2018-10-11 22:24] LABS: ETHANOL BLOOD < 10 mg/dL
[2018-10-11] MEDS ORDERED: DILTIAZEM HCL 5MG/ML 5ML VIAL IV ONE (22:30)
[2018-10-11] MEDS ORDERED: NITROGLYCERIN 0.4MG TABLET SL SL PRN (22:45)
[2018-10-11] MEDS ORDERED: MAGNESIUM/ALUMINUM HYDROXIDE/SIMETHICONE 30ML UDC PO PRN (22:45)
[2018-10-11] MEDS ORDERED: ZOLPIDEM TARTRATE 5MG TABLET PO PRN (22:45)
[2018-10-11] MEDS ORDERED: ACETAMINOPHEN 325MG TABLET PO PRN (22:45)
[2018-10-11] MEDS ORDERED: IPRATROPIUM/ALBUTEROL 0.5-3(2.5)MG/3ML NEB INH PRN (22:45)
[2018-10-11] MEDS ORDERED: CLONIDINE 0.1MG TABLET PO PRN (22:45)
[2018-10-11] MEDS ORDERED: ONDANSETRON HCL 4MG/2ML INJ IV PRN (22:45)
[2018-10-11] MEDS ORDERED: DOCUSATE SODIUM 100MG CAPSULE PO PRN (22:45)
[2018-10-11] MEDS ORDERED: GUAIFENESIN 200MG/10ML SUGAR FREE UDC PO PRN (22:45)
[2018-10-11] MEDS ORDERED: NA PHOS,M-B/NA PHOS,DI-BA ENEMA 118ML PR PRN (22:45)
[2018-10-11] MEDS ORDERED: ASPIRIN 325MG EC TABLET PO ONE (23:00)
[2018-10-11 23:55] LABS: BASOPHILS % 0.5 % (0.0-2.0); EOSINOPHILS % 0.2 % (0.0-5.0); HEMATOCRIT. 42.2 % (42.0-52.0); HEMOGLOBIN. 14.3 g/dL (14.0-18.0); LYMPHOCYTES % 11.6 % (20.0-50.0); MEAN CORPUSCULAR HEMOGLOBIN 29.1 pg (28.0-32.0); MEAN CORPUSCULAR VOLUME 86.1 fL (80.0-94.0); MEAN PLATELET VOLUME 8.3 fl (7.4-10.4); MONOCYTES % 10.9 % (2.0-8.0); NEUTROPHILS % 76.8 % (40.0-76.0); PLATELET 149 x1000/uL (130-400); RED CELL DISTRIBUTION WIDTH 13.9 % (11.6-14.6)
[2018-10-11 23:58] LABS: INR 1.7
[2018-10-12] VITALS (12 sets, daily range): BP systolic 114–151; BP diastolic 51–94
[2018-10-12] MEDS: DILTIAZEM HCL 60MG TABLET PO SCH ×3 (01:41→12:14)
[2018-10-12 07:46] LABS: CREATINE KINASE MB FRACTION 1.5 ng/mL (0.5-3.6)
[2018-10-12 07:53] LABS: CHLORIDE 105 mEq/L (98-107)
[2018-10-12] MEDS: ASPIRIN 325MG EC TABLET PO SCH (08:42)
[2018-10-12] MEDS: FAMOTIDINE 20MG TABLET PO SCH ×2 (08:42→21:20)
[2018-10-12] MEDS: GUAIFENESIN/DM 600MG/30MG ER TAB 12HR PO SCH ×2 (08:44→21:21)
[2018-10-12] MEDS: FUROSEMIDE 40MG/4ML VIAL IVP SCH ×2 (08:44→21:20)
[2018-10-12] MEDS: SPIRONOLACTONE 25MG TABLET PO SCH ×2 (08:44→21:20)
[2018-10-12] MEDS: LORAZEPAM 0.5MG TABLET PO PRN (14:52)
[2018-10-12] MEDS: KETOROLAC 15MG/ML VIAL IV PRN (16:44)
[2018-10-12] MEDS ORDERED: WARFARIN SODIUM 5MG TABLET PO SCH (18:00)
[2018-10-12 18:22] LABS: CANNABINOID URINE SCREEN NEGATIVE (NEGATIVE); OPIATES URINE SCREEN PRESUMTIVE POSITIVE (NEGATIVE); PHENCYCLIDINE URINE SCREEN NEGATIVE (NEGATIVE)
[2018-10-12 18:23] LABS: *AMPHETAMINES SCREEN URINE NEGATIVE (NEGATIVE); *BARBITURATES SCREEN URINE NEGATIVE (NEGATIVE); *BENZODIAZEPINES SCREEN URINE NEGATIVE (NEGATIVE); *COCAINE SCREEN URINE NEGATIVE (NEGATIVE); METHADONE URINE SCREEN NEGATIVE (NEGATIVE)
[2018-10-12] MEDS: CARVEDILOL 3.125 MG TABLET PO SCH (21:21)
[2018-10-13] VITALS (7 sets, daily range): BP systolic 96–135; BP diastolic 49–77
[2018-10-13] MEDS: LORAZEPAM 0.5MG TABLET PO PRN ×2 (02:00→06:27)
[2018-10-13] MEDS: KETOROLAC 15MG/ML VIAL IV PRN (02:17)
[2018-10-13 07:16] LABS: INR 1.5; PROTHROMBIN TIME 14.7 sec (9.1-11.1)
[2018-10-13 08:15] LABS: CREATINE KINASE MB FRACTION 1.1 ng/mL (0.5-3.6)
[2018-10-13] MEDS: FAMOTIDINE 20MG TABLET PO SCH (08:52)
[2018-10-13] MEDS: ASPIRIN 325MG EC TABLET PO SCH (08:52)
[2018-10-13] MEDS: GUAIFENESIN/DM 600MG/30MG ER TAB 12HR PO SCH (08:52)
[2018-10-13] MEDS: SPIRONOLACTONE 25MG TABLET PO SCH (08:54)
[2018-10-13] MEDS: CARVEDILOL 3.125 MG TABLET PO SCH (08:54)
[2018-10-13] MEDS ORDERED: LOSARTAN POTASSIUM 25 MG TABLET PO SCH (09:00)
[2018-10-13] MEDS: FUROSEMIDE 40MG/4ML VIAL IVP SCH (09:08)
[2018-10-13] MEDS ORDERED: WARFARIN SODIUM 5MG TABLET PO NR (18:00)
== END 2018-10-13 13:20 | disposition home or self-care (01) | DRG 291 ==
LOC: ER 19:33 → 5EST 22:36 → EDBEDREQTM 22:43 → EDBEDREQ 22:43 → EDBEDREQSVC 22:43 → ENRESERV 23:17
PROVIDERS: ADMIT Internal Medicine; ATTEND Internal Medicine
PROC: 5A09357 Assistance with Respiratory Ventilation, Less than 24 Consecutive Hours, Continuous Positive Airway Pressure (ICD-10-PCS; principal; 2018-10-11)
DX: I11.0 Hypertensive heart disease with heart failure (principal); J96.00 Acute respiratory failure, unspecified whether with hypoxia or hypercapnia; I48.92 Unspecified atrial flutter; J84.9 Interstitial pulmonary disease, unspecified; I50.43 Acute on chronic combined systolic (congestive) and diastolic (congestive) heart failure; I42.9 Cardiomyopathy, unspecified; F12.10 Cannabis abuse, uncomplicated; E11.9 Type 2 diabetes mellitus without complications; M10.9 Gout, unspecified; Z60.2 Problems related to living alone; F10.10 Alcohol abuse, uncomplicated; I48.91 Unspecified atrial fibrillation; I25.10 Atherosclerotic heart disease of native coronary artery without angina pectoris; I25.2 Old myocardial infarction; Z79.01 Long term (current) use of anticoagulants; Z91.11 Patient's noncompliance with dietary regimen; Z91.14 Patient's other noncompliance with medication regimen; Z91.19 Patient's noncompliance with other medical treatment and regimen; Z95.5 Presence of coronary angioplasty implant and graft
CPT/HCPCS: 36415; 71045; 80061; 80305; 82550; 82553; 83036; 83605; 83735; 83880; 84484; 93005; 93970; 94660; 96374; 96375; 99291; G0482; J1885; J1940; J2060; J2270; J3490

== ENCOUNTER 2018-10-14 11:35 | Emergency (ER) | payer OTHER ==
[~2018-10-14] VITALS: Ht 180.3 cm; Wt 100.0 kg
[2018-10-14] MEDS ORDERED: ONDANSETRON 4MG ODT PO ONE (13:15)
[2018-10-14] MEDS ORDERED: KETOROLAC 30MG/ML VIAL IM ONE (13:15)
[2018-10-14] MEDS ORDERED: MORPHINE SULFATE 10 MG/ML CPJ IM ONE (13:15)
[2018-10-14 15:42] VITALS: BP 126/71
== END 2018-10-14 15:44 | disposition home or self-care (01) ==
LOC: ER 13:32
DX: R51 Headache (principal); I11.0 Hypertensive heart disease with heart failure; I50.9 Heart failure, unspecified; E78.00 Pure hypercholesterolemia, unspecified; I48.91 Unspecified atrial fibrillation; I25.10 Atherosclerotic heart disease of native coronary artery without angina pectoris; F12.10 Cannabis abuse, uncomplicated; Z90.49 Acquired absence of other specified parts of digestive tract; Z98.61 Coronary angioplasty status; Z79.82 Long term (current) use of aspirin; Z79.899 Other long term (current) drug therapy
CPT/HCPCS: 70450; 96372; 99284; J1885; J2270; Q0162

== ENCOUNTER 2018-10-17 01:02 | Inpatient (IN) | payer OTHER ==
[~2018-10-17] VITALS: Ht 180.3 cm; Wt 99.8 kg
[~2018-10-17 01:02] MED LIST changes: -BENZ1TAB7 MT; -LOSA100T3 PO
[2018-10-17 04:57] LABS: HEMATOCRIT. 37.8 % (42.0-52.0); HEMOGLOBIN. 12.5 g/dL (14.0-18.0); MEAN CORPUSCULAR HEMOGLOBIN 28.9 pg (28.0-32.0); MEAN PLATELET VOLUME 8.5 fl (7.4-10.4); PLATELET 133 x1000/uL (130-400); RED BLOOD CELL COUNT 4.34 mill/uL (4.7-6.1); RED CELL DISTRIBUTION WIDTH 13.8 % (11.6-14.6)
[2018-10-17 05:01] LABS: CHLORIDE 105 mEq/L (98-107); INR 1.3; PROTHROMBIN TIME 13.4 sec (9.1-11.1)
[2018-10-17] MEDS ORDERED: FUROSEMIDE 40MG/4ML VIAL IV ONE (06:00)
[2018-10-17] MEDS ORDERED: ACETAMINOPHEN 325MG TABLET PO PRN ×2 (06:00→10:15)
[2018-10-17] MEDS ORDERED: ASPIRIN 81MG TABLET PO ONE (06:00)
[2018-10-17 06:28] LABS: CLARITY URINE CLEAR (CLEAR); COLOR URINE DARK YELLOW (YELLOW); KETONES URINE NEGATIVE (NEGATIVE); LEUKOCYTE ESTERASE URINE NEGATIVE (NEGATIVE); NITRITE URINE NEGATIVE (NEGATIVE); OCCULT BLOOD URINE NEGATIVE (NEGATIVE); PROTEIN URINE 1+ (NEGATIVE); SPECIFIC GRAVITY URINE 1.021 (1.005-1.030)
[2018-10-17 06:56] LABS: PLATELET ESTIMATE NORMAL
[2018-10-17] MEDS ORDERED: GUAIFENESIN 200MG/10ML SUGAR FREE UDC PO PRN (10:15)
[2018-10-17] MEDS ORDERED: MAGNESIUM/ALUMINUM HYDROXIDE/SIMETHICONE 30ML UDC PO PRN (10:15)
[2018-10-17] MEDS ORDERED: NA PHOS,M-B/NA PHOS,DI-BA ENEMA 118ML PR PRN (10:15)
[2018-10-17] MEDS ORDERED: IPRATROPIUM/ALBUTEROL 0.5-3(2.5)MG/3ML NEB INH PRN (10:15)
[2018-10-17] MEDS ORDERED: DOCUSATE SODIUM 100MG CAPSULE PO PRN (10:15)
[2018-10-17] MEDS ORDERED: NITROGLYCERIN 0.4MG TABLET SL SL PRN (10:15)
[2018-10-17] MEDS ORDERED: ONDANSETRON HCL 4MG/2ML INJ IV PRN (10:15)
[2018-10-17] MEDS ORDERED: ZOLPIDEM TARTRATE 5MG TABLET PO PRN (10:15)
[2018-10-17] MEDS ORDERED: LORAZEPAM 1MG TABLET PO PRN (10:15)
[2018-10-17] MEDS ORDERED: KETOROLAC 15MG/ML VIAL IV PRN (10:15)
[2018-10-17] MEDS ORDERED: CLONIDINE 0.1MG TABLET PO PRN (10:15)
[2018-10-17] MEDS ORDERED: ENOXAPARIN 40MG/0.4ML SYR SUBCUT SCH (12:00)
[2018-10-17 12:30] VITALS: BP 120/89
[2018-10-17] MEDS: DILTIAZEM HCL 60MG TABLET PO SCH ×2 (13:08→17:53)
[2018-10-17 14:45] VITALS: BP 120/89
[2018-10-17 15:25] LABS: *AMPHETAMINES SCREEN URINE NEGATIVE (NEGATIVE); *BARBITURATES SCREEN URINE NEGATIVE (NEGATIVE); *BENZODIAZEPINES SCREEN URINE NEGATIVE (NEGATIVE); *COCAINE SCREEN URINE NEGATIVE (NEGATIVE); METHADONE URINE SCREEN NEGATIVE (NEGATIVE); OPIATES URINE SCREEN PRESUMTIVE POSITIVE (NEGATIVE)
[2018-10-17 15:26] LABS: CANNABINOID URINE SCREEN NEGATIVE (NEGATIVE); PHENCYCLIDINE URINE SCREEN NEGATIVE (NEGATIVE)
[2018-10-17 16:30] VITALS: BP 115/86
[2018-10-17] MEDS ORDERED: WARFARIN SODIUM 5MG TABLET PO NR (18:00)
[2018-10-17] MEDS ORDERED: DEXTROSE 50% WATER 50ML SYRINGE IV PRN (18:30)
[2018-10-17 20:00] VITALS: BP 140/71
[2018-10-17] MEDS ORDERED: FUROSEMIDE 40MG/4ML VIAL IVP SCH (21:00)
[2018-10-17] MEDS ORDERED: BLOOD SUGAR DIAGNOSTIC STRIP TEST SCH (21:00)
[2018-10-17] MEDS ORDERED: SPIRONOLACTONE 25MG TABLET PO SCH (21:00)
[2018-10-17] MEDS ORDERED: INSULIN LISPRO 100 UNITS/ML SUBCUT SCH (21:00)
[2018-10-17] MEDS ORDERED: FAMOTIDINE 20MG TABLET PO SCH (21:00)
[2018-10-18] MEDS ORDERED: ASPIRIN 325MG EC TABLET PO SCH (09:00)
== END 2018-10-17 22:00 | disposition left against medical advice (07) | DRG 292 ==
LOC: ER 01:02 → EDBEDREQ 04:19 → 8WST 05:59 → EDBEDREQ 06:11 → EDBEDREQTM 06:11 → ENRESERV 09:53
PROVIDERS: ADMIT Internal Medicine; ATTEND Internal Medicine
DX: I11.0 Hypertensive heart disease with heart failure (principal); E44.1 Mild protein-calorie malnutrition; I50.43 Acute on chronic combined systolic (congestive) and diastolic (congestive) heart failure; I42.9 Cardiomyopathy, unspecified; E11.9 Type 2 diabetes mellitus without complications; M10.9 Gout, unspecified; F14.10 Cocaine abuse, uncomplicated; Z53.21 Procedure and treatment not carried out due to patient leaving prior to being seen by health care provider; E78.00 Pure hypercholesterolemia, unspecified; F17.200 Nicotine dependence, unspecified, uncomplicated; I25.10 Atherosclerotic heart disease of native coronary artery without angina pectoris; I48.91 Unspecified atrial fibrillation; Z91.11 Patient's noncompliance with dietary regimen; Z91.14 Patient's other noncompliance with medication regimen; Z95.5 Presence of coronary angioplasty implant and graft; I25.2 Old myocardial infarction; Z79.899 Other long term (current) drug therapy; Z90.49 Acquired absence of other specified parts of digestive tract; Z68.30 Body mass index [BMI] 30.0-30.9, adult
CPT/HCPCS: 36415; 71045; 80061; 80305; 83036; 83605; 83880; 84484; 93005; 99285; J1650; J1940

== ENCOUNTER 2018-12-09 00:06 | Emergency (ER) | payer OTHER ==
[~2018-12-09] VITALS: Ht 180.3 cm; Wt 104.4 kg
[2018-12-09 04:52] VITALS: BP 114/76
== END 2018-12-09 04:55 | disposition home or self-care (01) ==
LOC: ER 00:06
DX: R51 Headache (principal); T40.4X5A Adverse effect of other synthetic narcotics, initial encounter; R42 Dizziness and giddiness; R11.0 Nausea; M79.672 Pain in left foot; M79.671 Pain in right foot; E78.00 Pure hypercholesterolemia, unspecified; I11.0 Hypertensive heart disease with heart failure; I50.9 Heart failure, unspecified; I25.10 Atherosclerotic heart disease of native coronary artery without angina pectoris; F12.10 Cannabis abuse, uncomplicated; Z79.82 Long term (current) use of aspirin; Z79.899 Other long term (current) drug therapy; Z90.49 Acquired absence of other specified parts of digestive tract; Z98.62 Peripheral vascular angioplasty status; Y92.89 Other specified places as the place of occurrence of the external cause
CPT/HCPCS: 93005; 99283

== ENCOUNTER 2018-12-24 21:59 | Emergency (ER) | payer OTHER ==
[~2018-12-24] VITALS: Ht 180.3 cm; Wt 100.0 kg
[2018-12-25] MEDS ORDERED: FUROSEMIDE 20MG TABLET PO ONE (04:00)
[2018-12-25] MEDS ORDERED: FUROSEMIDE 20MG/2ML VIAL IVP SCH (04:00)
[2018-12-25 05:38] VITALS: BP 123/99
== END 2018-12-25 05:52 | disposition left against medical advice (07) ==
LOC: ER 21:59
DX: I11.0 Hypertensive heart disease with heart failure (principal); I50.9 Heart failure, unspecified; F12.10 Cannabis abuse, uncomplicated; Z90.49 Acquired absence of other specified parts of digestive tract; Z98.890 Other specified postprocedural states; Z79.82 Long term (current) use of aspirin; Z79.899 Other long term (current) drug therapy
CPT/HCPCS: 71045; 93005; 99283

== ENCOUNTER 2019-01-07 06:21 | Inpatient (IN) | payer OTHER ==
[~2019-01-07] VITALS: Ht 180.3 cm; Wt 97.5 kg
[2019-01-07] MEDS ORDERED: ONDANSETRON HCL 4MG/2ML INJ IV STA (06:53)
[2019-01-07] MEDS ORDERED: ASPIRIN 81MG TABLET PO ONE (07:00)
[2019-01-07] MEDS ORDERED: CEFTRIAXONE 1 G PREMIX 50 ML IV ONE (07:45)
[2019-01-07] MEDS ORDERED: DOCUSATE SODIUM SUGAR FREE 100MG/10ML UDC NG ONE (07:45)
[2019-01-07 08:16] LABS: BASOPHILS % 1.2 % (0.0-2.0); EOSINOPHILS % 0.9 % (0.0-5.0); HEMATOCRIT. 41.8 % (42.0-52.0); HEMOGLOBIN. 13.9 g/dL (14.0-18.0); LYMPHOCYTES % 22.8 % (20.0-50.0); MEAN CORPUSCULAR HEMOGLOBIN 29.3 pg (28.0-32.0); MEAN CORPUSCULAR VOLUME 87.8 fL (80.0-94.0); MEAN PLATELET VOLUME 8.7 fl (7.4-10.4); MONOCYTES % 14.1 % (2.0-8.0); PLATELET 273 x1000/uL (130-400); RED BLOOD CELL COUNT 4.76 mill/uL (4.7-6.1); RED CELL DISTRIBUTION WIDTH 15.4 % (11.6-14.6)
[2019-01-07 08:22] LABS: CHLORIDE 110 mEq/L (98-107); INR 1.1; PROTHROMBIN TIME 11.3 sec (9.1-11.1)
[2019-01-07] MEDS ORDERED: LORAZEPAM 2MG/ML CPJ IV ONE (08:45)
[2019-01-07] MEDS ORDERED: FUROSEMIDE 40MG/4ML VIAL IVP ONE (09:00)
[2019-01-07] MEDS ORDERED: GUAIFENESIN 200MG/10ML SUGAR FREE UDC PO PRN (13:45)
[2019-01-07] MEDS ORDERED: IPRATROPIUM/ALBUTEROL 0.5-3(2.5)MG/3ML NEB INH PRN (13:45)
[2019-01-07] MEDS ORDERED: NA PHOS,M-B/NA PHOS,DI-BA ENEMA 118ML PR PRN (13:45)
[2019-01-07] MEDS ORDERED: MORPHINE SULFATE 4 MG/ML CPJ (NOT FOR IM USE) IV PRN (13:45)
[2019-01-07] MEDS ORDERED: CLONIDINE 0.1MG TABLET PO PRN (13:45)
[2019-01-07] MEDS ORDERED: MAGNESIUM/ALUMINUM HYDROXIDE/SIMETHICONE 30ML UDC PO PRN (13:45)
[2019-01-07 16:11] LABS: BG BASE EXCESS -1.8 mmol/L (-2.0-2.0); BG BILEVEL POS AIRWAY PRESSURE 16/5; BG CARBOXYHEMOGLOBIN 0.3 % (0.5-1.5); BG DEOXYHEMOGLOBIN 1.4 % (0.0-5.0); BG FRACTION INSPIRED OXYGEN 40; BG METHEMOGLOBIN 0.2 % (0.0-1.5); BG OXYGEN SATURATION 98.6 % (92.0-98.5); BG OXYHEMOGLOBIN 98.1 % (94.0-97.0); BG PCO2 44.5 mmHg (35.0-45.0); BG PH 7.349 (7.350-7.450); BG PO2 159.9 mmHg (75.0-100.0); BG SAMPLE SITE RIGHT BRACHIAL; BG TOTAL HEMOGLOBIN 13.5 g/dL (12.0-18.0); BG VENT MODE MASK - BIPAP; BG VENT RATE 16 set
[2019-01-07 16:19] LABS: CHLORIDE 110 mEq/L (98-107)
[2019-01-07] MEDS ORDERED: FUROSEMIDE 100MG/10ML VIAL IV NR (17:30)
[2019-01-07] MEDS ORDERED: ENOXAPARIN 80MG/0.8ML SYR SUBCUT SCH (17:30)
[2019-01-07] MEDS ORDERED: FUROSEMIDE 100MG/10ML VIAL IV SCH (21:15)
[2019-01-07 22:48] LABS: *BARBITURATES SCREEN URINE NEGATIVE (NEGATIVE)
[2019-01-07 22:49] LABS: *AMPHETAMINES SCREEN URINE NEGATIVE (NEGATIVE); *BENZODIAZEPINES SCREEN URINE NEGATIVE (NEGATIVE); *COCAINE SCREEN URINE PRESUMTIVE POSITIVE (NEGATIVE); METHADONE URINE SCREEN NEGATIVE (NEGATIVE); OPIATES URINE SCREEN NEGATIVE (NEGATIVE); PHENCYCLIDINE URINE SCREEN NEGATIVE (NEGATIVE)
[2019-01-07 22:50] LABS: CANNABINOID URINE SCREEN NEGATIVE (NEGATIVE)
[2019-01-08] VITALS (12 sets, daily range): BP systolic 100–145; BP diastolic 50–104
[2019-01-08] MEDS: LORAZEPAM 2MG/ML CPJ IV PRN ×3 (01:45→21:30)
[2019-01-08] MEDS: DIPHENHYDRAMINE 50MG/ML VIAL IV PRN (02:52)
[2019-01-08] MEDS: IPRATROPIUM/ALBUTEROL 0.5-3(2.5)MG/3ML NEB HHN PRN ×2 (04:08→09:25)
[2019-01-08] MEDS: ENOXAPARIN 100MG/ML SYR SUBCUT SCH ×2 (05:26→17:10)
[2019-01-08] MEDS ORDERED: ENOXAPARIN 80MG/0.8ML SYR SUBCUT SCH (06:00)
[2019-01-08 06:17] LABS: CHLORIDE 108 mEq/L (98-107)
[2019-01-08 06:20] LABS: EOSINOPHILS % 1.3 % (0.0-5.0); HEMATOCRIT. 40.3 % (42.0-52.0); HEMOGLOBIN. 13.3 g/dL (14.0-18.0); LYMPHOCYTES % 20.7 % (20.0-50.0); MEAN CORPUSCULAR HEMOGLOBIN 29.1 pg (28.0-32.0); MEAN CORPUSCULAR VOLUME 87.8 fL (80.0-94.0); MEAN PLATELET VOLUME 8.4 fl (7.4-10.4); MONOCYTES % 13.3 % (2.0-8.0); NEUTROPHILS % 63.7 % (40.0-76.0); PLATELET 276 x1000/uL (130-400); RED BLOOD CELL COUNT 4.59 mill/uL (4.7-6.1); RED CELL DISTRIBUTION WIDTH 15.8 % (11.6-14.6)
[2019-01-08 06:26] LABS: LDL CHOLESTEROL 40 mg/dL (5-100)
[2019-01-08 06:27] LABS: CREATINE KINASE 69 IU/L (39-308); HDL CHOLESTEROL 28 mg/dL (40-59)
[2019-01-08 06:28] LABS: T4 FREE 1.09 ng/dL (0.76-1.46)
[2019-01-08] MEDS ORDERED: FUROSEMIDE 40MG/4ML VIAL IV SCH (09:00)
[2019-01-08] MEDS ORDERED: FUROSEMIDE 100MG/10ML VIAL IV SCH (09:00)
[2019-01-08] MEDS: ASPIRIN 81MG EC TABLET PO SCH (09:54)
[2019-01-08 13:34] LABS: BG BASE EXCESS 3.7 mmol/L (-2.0-2.0); BG CARBOXYHEMOGLOBIN 0.7 % (0.5-1.5); BG DEOXYHEMOGLOBIN 2.6 % (0.0-5.0); BG FRACTION INSPIRED OXYGEN 28; BG HCO3 ACT 28.7 mmol/L (22.0-26.0); BG METHEMOGLOBIN 0.3 % (0.0-1.5); BG OXYGEN SATURATION 97.4 % (92.0-98.5); BG OXYHEMOGLOBIN 96.4 % (94.0-97.0); BG PCO2 45.1 mmHg (35.0-45.0); BG PH 7.422 (7.350-7.450); BG PO2 98.3 mmHg (75.0-100.0); BG SAMPLE SITE RIGHT RADIAL; BG TOTAL HEMOGLOBIN 13.9 g/dL (12.0-18.0); BG VENT MODE NASAL CANNULA
[2019-01-08] MEDS ORDERED: DILTIAZEM HCL 5MG/ML 5ML VIAL IV NR (17:55)
[2019-01-08] MEDS ORDERED: ENOXAPARIN 100MG/ML SYR SUBCUT SCH (18:00)
[2019-01-08] MEDS: DILTIAZEM HCL 60MG TABLET PO SCH ×2 (18:07→23:32)
[2019-01-09] VITALS (12 sets, daily range): BP systolic 113–160; BP diastolic 56–103
[2019-01-09] MEDS: DIPHENHYDRAMINE 50MG/ML VIAL IV PRN (01:09)
[2019-01-09] MEDS: LORAZEPAM 2MG/ML CPJ IV PRN ×2 (01:30→20:00)
[2019-01-09] MEDS: DILTIAZEM HCL 60MG TABLET PO SCH ×2 (05:02→11:58)
[2019-01-09] MEDS: ENOXAPARIN 100MG/ML SYR SUBCUT SCH ×2 (05:03→18:03)
[2019-01-09] MEDS: FUROSEMIDE 40MG TABLET PO SCH (08:21)
[2019-01-09] MEDS: ASPIRIN 81MG EC TABLET PO SCH (08:21)
[2019-01-09 09:30] LABS: CHLORIDE 104 mEq/L (98-107)
[2019-01-09] MEDS: HYDROCODONE/ACETAMINOPHEN 5/325MG TABLET PO PRN ×2 (12:02→16:25)
[2019-01-09] MEDS: DILTIAZEM HCL 90MG TABLET PO SCH (18:05)
[2019-01-10] VITALS (13 sets, daily range): BP systolic 112–160; BP diastolic 62–98
[2019-01-10] MEDS: DILTIAZEM HCL 90MG TABLET PO SCH ×4 (02:02→18:21)
[2019-01-10] MEDS: ENOXAPARIN 100MG/ML SYR SUBCUT SCH (06:00)
[2019-01-10] MEDS: HYDROCODONE/ACETAMINOPHEN 5/325MG TABLET PO PRN (06:16)
[2019-01-10 06:28] LABS: BASOPHILS % 0.7 % (0.0-2.0); EOSINOPHILS % 1.5 % (0.0-5.0); HEMATOCRIT. 40.3 % (42.0-52.0); HEMOGLOBIN. 13.3 g/dL (14.0-18.0); LYMPHOCYTES % 22.8 % (20.0-50.0); MEAN CORPUSCULAR VOLUME 88.2 fL (80.0-94.0); MEAN PLATELET VOLUME 8.7 fl (7.4-10.4); MONOCYTES % 14.6 % (2.0-8.0); NEUTROPHILS % 60.4 % (40.0-76.0); PLATELET 270 x1000/uL (130-400); RED BLOOD CELL COUNT 4.57 mill/uL (4.7-6.1); RED CELL DISTRIBUTION WIDTH 15.7 % (11.6-14.6)
[2019-01-10 06:33] LABS: CHLORIDE 102 mEq/L (98-107)
[2019-01-10] MEDS: ASPIRIN 81MG EC TABLET PO SCH (09:00)
[2019-01-10] MEDS: FUROSEMIDE 40MG TABLET PO SCH (09:46)
[2019-01-10] MEDS: LORAZEPAM 2MG/ML CPJ IV PRN ×2 (16:24→21:01)
[2019-01-10] MEDS: DOCUSATE SODIUM 100MG CAPSULE PO PRN (18:20)
[2019-01-10] MEDS: IBUPROFEN 600MG TABLET PO PRN (20:30)
[2019-01-11] VITALS (12 sets, daily range): BP systolic 115–165; BP diastolic 48–110
[2019-01-11] MEDS: DILTIAZEM HCL 90MG TABLET PO SCH ×4 (00:49→17:43)
[2019-01-11] MEDS: LORAZEPAM 2MG/ML CPJ IV PRN ×5 (02:02→21:35)
[2019-01-11] MEDS: FUROSEMIDE 40MG TABLET PO SCH (09:02)
[2019-01-11] MEDS: DOCUSATE SODIUM 100MG CAPSULE PO PRN (14:21)
[2019-01-11] MEDS: HYDROCODONE/ACETAMINOPHEN 5/325MG TABLET PO PRN (15:08)
[2019-01-11] MEDS: APIXABAN 5 MG TABLET PO SCH (17:44)
[2019-01-11] MEDS: DIPHENHYDRAMINE 50MG/ML VIAL IV PRN (21:36)
[2019-01-12] VITALS (13 sets, daily range): BP systolic 106–167; BP diastolic 36–137
[2019-01-12] MEDS: DILTIAZEM HCL 90MG TABLET PO SCH ×5 (00:18→23:38)
[2019-01-12] MEDS: LORAZEPAM 2MG/ML CPJ IV PRN ×3 (01:55→12:23)
[2019-01-12 07:24] LABS: BASOPHILS % 0.7 % (0.0-2.0); EOSINOPHILS % 1.3 % (0.0-5.0); HEMATOCRIT. 41.3 % (42.0-52.0); HEMOGLOBIN. 13.6 g/dL (14.0-18.0); LYMPHOCYTES % 13.7 % (20.0-50.0); MEAN CORPUSCULAR HEMOGLOBIN 28.7 pg (28.0-32.0); MONOCYTES % 9.8 % (2.0-8.0); NEUTROPHILS % 74.5 % (40.0-76.0); RED BLOOD CELL COUNT 4.74 mill/uL (4.7-6.1); RED CELL DISTRIBUTION WIDTH 15.9 % (11.6-14.6)
[2019-01-12] MEDS: FUROSEMIDE 40MG TABLET PO SCH (09:20)
[2019-01-12] MEDS: APIXABAN 5 MG TABLET PO SCH ×2 (09:20→17:00)
[2019-01-12 10:11] LABS: CHLORIDE 104 mEq/L (98-107)
[2019-01-12] MEDS ORDERED: LORAZEPAM 0.5MG TABLET PO PRN (18:30)
[2019-01-12] MEDS: IBUPROFEN 600MG TABLET PO PRN (21:33)
[2019-01-12] MEDS ORDERED: HYDROCODONE/ACETAMINOPHEN 5/325MG TABLET PO PRN (22:30)
[2019-01-12] MEDS: MORPHINE SULFATE 4 MG/ML CPJ (NOT FOR IM USE) IV PRN (22:41)
[2019-01-13] VITALS (12 sets, daily range): BP systolic 110–147; BP diastolic 63–100
[2019-01-13] MEDS: DILTIAZEM HCL 90MG TABLET PO SCH ×4 (05:10→23:12)
[2019-01-13 06:57] LABS: HEMATOCRIT. 38.5 % (42.0-52.0); HEMOGLOBIN. 13.1 g/dL (14.0-18.0); MEAN CORPUSCULAR HEMOGLOBIN 29.1 pg (28.0-32.0); MEAN CORPUSCULAR VOLUME 86.1 fL (80.0-94.0); MEAN PLATELET VOLUME 8.4 fl (7.4-10.4); PLATELET 246 x1000/uL (130-400); RED BLOOD CELL COUNT 4.48 mill/uL (4.7-6.1); RED CELL DISTRIBUTION WIDTH 16.1 % (11.6-14.6)
[2019-01-13 07:20] LABS: CHLORIDE 102 mEq/L (98-107)
[2019-01-13] MEDS: FUROSEMIDE 40MG TABLET PO SCH (08:42)
[2019-01-13] MEDS: MORPHINE SULFATE 4 MG/ML CPJ (NOT FOR IM USE) IV PRN (08:43)
[2019-01-13 11:44] LABS: PLATELET ESTIMATE NORMAL
[2019-01-13] MEDS: IBUPROFEN 600MG TABLET PO PRN (12:29)
[2019-01-13] MEDS: APIXABAN 5 MG TABLET PO SCH ×2 (17:00→18:44)
[2019-01-13] MEDS: LORAZEPAM 2MG/ML CPJ IV PRN ×2 (18:27→23:48)
[2019-01-13] MEDS: DIPHENHYDRAMINE 50MG/ML VIAL IV PRN (21:19)
[2019-01-14] VITALS (12 sets, daily range): BP systolic 106–157; BP diastolic 42–90
[2019-01-14] MEDS: DILTIAZEM HCL 90MG TABLET PO SCH ×4 (05:05→18:22)
[2019-01-14] MEDS: FUROSEMIDE 40MG TABLET PO SCH (08:41)
[2019-01-14] MEDS: APIXABAN 5 MG TABLET PO SCH ×3 (08:41→18:15)
[2019-01-14] MEDS: ASPIRIN 81MG TABLET PO SCH (08:42)
[2019-01-14 09:51] LABS: BASOPHILS % 1.2 % (0.0-2.0); EOSINOPHILS % 3.9 % (0.0-5.0); HEMATOCRIT. 39.8 % (42.0-52.0); HEMOGLOBIN. 13.3 g/dL (14.0-18.0); LYMPHOCYTES % 15.6 % (20.0-50.0); MEAN CORPUSCULAR HEMOGLOBIN 28.7 pg (28.0-32.0); MEAN PLATELET VOLUME 8.1 fl (7.4-10.4); MONOCYTES % 11.5 % (2.0-8.0); NEUTROPHILS % 67.8 % (40.0-76.0); PLATELET 226 x1000/uL (130-400); RED BLOOD CELL COUNT 4.62 mill/uL (4.7-6.1); RED CELL DISTRIBUTION WIDTH 15.8 % (11.6-14.6)
[2019-01-14 09:52] LABS: CHLORIDE 103 mEq/L (98-107)
[2019-01-15] VITALS (12 sets, daily range): BP systolic 96–168; BP diastolic 46–101
[2019-01-15] MEDS: LORAZEPAM 2MG/ML CPJ IV PRN ×3 (03:35→21:01)
[2019-01-15] MEDS: MORPHINE SULFATE 4 MG/ML CPJ (NOT FOR IM USE) IV PRN (06:15)
[2019-01-15] MEDS: DILTIAZEM HCL 90MG TABLET PO SCH ×5 (06:15→23:15)
[2019-01-15] MEDS: FUROSEMIDE 40MG TABLET PO SCH (08:50)
[2019-01-15] MEDS: ASPIRIN 81MG TABLET PO SCH (08:50)
[2019-01-15] MEDS: APIXABAN 5 MG TABLET PO SCH ×2 (08:50→17:33)
[2019-01-15] MEDS: IBUPROFEN 600MG TABLET PO PRN (15:27)
[2019-01-15] MEDS: DIPHENHYDRAMINE 50MG/ML VIAL IV PRN (23:15)
[2019-01-16] VITALS (10 sets, daily range): BP systolic 109–156; BP diastolic 58–88
[2019-01-16] MEDS: LORAZEPAM 2MG/ML CPJ IV PRN (03:13)
[2019-01-16] MEDS: DILTIAZEM HCL 90MG TABLET PO SCH ×2 (06:03→12:52)
[2019-01-16 06:51] LABS: HEMOGLOBIN. 13.4 g/dL (14.0-18.0); MEAN CORPUSCULAR HEMOGLOBIN 29.3 pg (28.0-32.0); MEAN CORPUSCULAR VOLUME 85.3 fL (80.0-94.0); MEAN PLATELET VOLUME 8.3 fl (7.4-10.4); PLATELET 287 x1000/uL (130-400); RED BLOOD CELL COUNT 4.57 mill/uL (4.7-6.1); RED CELL DISTRIBUTION WIDTH 15.7 % (11.6-14.6)
[2019-01-16 07:19] LABS: CHLORIDE 104 mEq/L (98-107)
[2019-01-16] MEDS ORDERED: LORAZEPAM 0.5MG TABLET PO PRN (07:30)
[2019-01-16] MEDS: ASPIRIN 81MG TABLET PO SCH (09:39)
[2019-01-16] MEDS: FUROSEMIDE 40MG TABLET PO SCH (09:39)
[2019-01-16] MEDS: APIXABAN 5 MG TABLET PO SCH (09:40)
[2019-01-16 12:15] LABS: PLATELET ESTIMATE NORMAL
== END 2019-01-16 16:30 | disposition home or self-care (01) | DRG 291 ==
LOC: ER 06:21 → 5EST 09:16 → ENRESERV 21:22 → CANRESERV 21:22 → ENRESERV 22:26
PROVIDERS: ADMIT Internal Medicine; ATTEND Internal Medicine
PROC: 5A09357 Assistance with Respiratory Ventilation, Less than 24 Consecutive Hours, Continuous Positive Airway Pressure (ICD-10-PCS; principal; 2019-01-07)
PROC: 5A09557 Assistance with Respiratory Ventilation, Greater than 96 Consecutive Hours, Continuous Positive Airway Pressure (ICD-10-PCS; 2019-01-08)
DX: I11.0 Hypertensive heart disease with heart failure (principal); J69.0 Pneumonitis due to inhalation of food and vomit; J96.00 Acute respiratory failure, unspecified whether with hypoxia or hypercapnia; R65.10 Systemic inflammatory response syndrome (SIRS) of non-infectious origin without acute organ dysfunction; I48.92 Unspecified atrial flutter; E87.2 Acidosis; G93.40 Encephalopathy, unspecified; I50.23 Acute on chronic systolic (congestive) heart failure; I42.0 Dilated cardiomyopathy; E87.5 Hyperkalemia; I48.91 Unspecified atrial fibrillation; I25.10 Atherosclerotic heart disease of native coronary artery without angina pectoris; E11.9 Type 2 diabetes mellitus without complications; E78.00 Pure hypercholesterolemia, unspecified; R79.1 Abnormal coagulation profile; Z79.01 Long term (current) use of anticoagulants; Z79.82 Long term (current) use of aspirin; Z79.899 Other long term (current) drug therapy; Z91.14 Patient's other noncompliance with medication regimen; Z91.19 Patient's noncompliance with other medical treatment and regimen; Z95.5 Presence of coronary angioplasty implant and graft; Z90.49 Acquired absence of other specified parts of digestive tract
CPT/HCPCS: 36415; 36600; 71045; 80048; 80061; 80305; 82375; 82550; 82553; 82805; 83605; 83735; 83880; 84439; 84481; 84484; 85379; 93005; 93306; 93970; 94660; 96365; 96366; 96375; 96376; 97162; 99291; C1893; J0696; J1200; J1650; J1940; J2060; J2270; J2405; J3490; J7620; A4315

== ENCOUNTER 2019-01-26 02:42 | Emergency (ER) | payer OTHER ==
[~2019-01-26] VITALS: Ht 180.3 cm; Wt 98.0 kg
[2019-01-26] MEDS ORDERED: ASPIRIN 81MG TABLET PO ONE (03:30)
[2019-01-26 04:45] VITALS: BP 104/70
[2019-01-27] MEDS ORDERED: AMI2 PO (15:33)
[2019-01-27] MEDS ORDERED: APIX5TAB PO (22:44)
== END 2019-01-26 04:45 | disposition left against medical advice (07) ==
LOC: ER 02:42
DX: R00.2 Palpitations (principal); I48.91 Unspecified atrial fibrillation; F41.9 Anxiety disorder, unspecified; I25.10 Atherosclerotic heart disease of native coronary artery without angina pectoris; I10 Essential (primary) hypertension; E78.00 Pure hypercholesterolemia, unspecified; M10.9 Gout, unspecified; Z79.01 Long term (current) use of anticoagulants; Z79.82 Long term (current) use of aspirin; Z90.49 Acquired absence of other specified parts of digestive tract; Z98.62 Peripheral vascular angioplasty status
CPT/HCPCS: 71045; 93005; 99283

== ENCOUNTER 2019-01-27 03:45 | Inpatient (IN) | payer OTHER ==
[~2019-01-27] VITALS: Ht 177.8 cm; Wt 96.2 kg
[2019-01-27] MEDS ORDERED: NITROGLYCERIN 0.4MG TABLET SL SL PRN (04:00)
[2019-01-27] MEDS ORDERED: FUROSEMIDE 40MG/4ML VIAL IVP ONE (04:00)
[2019-01-27 04:33] LABS: BASOPHILS % 1.3 % (0.0-2.0); EOSINOPHILS % 1.7 % (0.0-5.0); HEMATOCRIT. 34.9 % (42.0-52.0); HEMOGLOBIN. 11.8 g/dL (14.0-18.0); LYMPHOCYTES % 18.9 % (20.0-50.0); MEAN CORPUSCULAR HEMOGLOBIN 29.5 pg (28.0-32.0); MEAN CORPUSCULAR VOLUME 87.2 fL (80.0-94.0); MEAN PLATELET VOLUME 8.2 fl (7.4-10.4); MONOCYTES % 11.5 % (2.0-8.0); NEUTROPHILS % 66.6 % (40.0-76.0); PLATELET 192 x1000/uL (130-400); RED CELL DISTRIBUTION WIDTH 15.7 % (11.6-14.6)
[2019-01-27 06:42] LABS: CHLORIDE 112 mEq/L (98-107)
[2019-01-27] MEDS ORDERED: CLONIDINE 0.1MG TABLET PO PRN (07:15)
[2019-01-27] MEDS ORDERED: DOCUSATE SODIUM 100MG CAPSULE PO PRN (07:15)
[2019-01-27] MEDS ORDERED: ONDANSETRON HCL 4MG/2ML INJ IV PRN (07:15)
[2019-01-27] MEDS ORDERED: GUAIFENESIN 200MG/10ML SUGAR FREE UDC PO PRN (07:15)
[2019-01-27] MEDS ORDERED: LORAZEPAM 1MG TABLET PO NR (08:12)
[2019-01-27] MEDS ORDERED: FUROSEMIDE 40MG/4ML VIAL IV SCH (10:45)
[2019-01-27] MEDS ORDERED: ENOXAPARIN 40MG/0.4ML SYR SUBCUT SCH (10:45)
[2019-01-27 14:09] VITALS: BP 119/87
[2019-01-27] MEDS: FUROSEMIDE 40MG/4ML VIAL IV SCH (15:25)
[2019-01-27] MEDS ORDERED: AMI2 PO (15:33)
[2019-01-27 16:00] VITALS: BP 124/91
[2019-01-27 16:00] LABS: CREATINE KINASE 56 IU/L (39-308)
[2019-01-27] MEDS: AMLODIPINE 10MG TABLET PO SCH (16:14)
[2019-01-27] MEDS: LORAZEPAM 2MG/ML CPJ IV PRN (16:15)
[2019-01-27] MEDS: ALLOPURINOL 100 MG TABLET PO SCH (18:30)
[2019-01-27] MEDS: SPIRONOLACTONE 25MG TABLET PO SCH (18:41)
[2019-01-27 20:00] VITALS: BP 117/68
[2019-01-27] MEDS: CARVEDILOL 6.25 MG TABLET PO SCH (20:37)
[2019-01-27 20:40] LABS: INR 1.1; PROTHROMBIN TIME 11.6 sec (9.6-11.0)
[2019-01-27] MEDS: ATORVASTATIN CALCIUM 40MG TABLET PO SCH ×2 (20:41→22:27)
[2019-01-27] MEDS: ENOXAPARIN 80MG/0.8ML SYR SUBCUT SCH ×2 (20:41→22:29)
[2019-01-27] MEDS: WARFARIN SODIUM 5MG TABLET PO SCH ×2 (22:28→22:35)
[2019-01-27] MEDS ORDERED: APIX5TAB PO (22:44)
[2019-01-27 23:57] LABS: CREATINE KINASE 53 IU/L (39-308)
[2019-01-28] VITALS: BP 119/79
[2019-01-28] MEDS: LORAZEPAM 2MG/ML CPJ IV PRN ×2 (00:11→17:17)
[2019-01-28 04:00] VITALS: BP 129/65
[2019-01-28] MEDS: ACETAMINOPHEN 325MG TABLET PO PRN (05:27)
[2019-01-28 07:24] LABS: BASOPHILS % 1.1 % (0.0-2.0); EOSINOPHILS % 2.1 % (0.0-5.0); HEMATOCRIT. 37.2 % (42.0-52.0); HEMOGLOBIN. 12.5 g/dL (14.0-18.0); LYMPHOCYTES % 25.7 % (20.0-50.0); MEAN CORPUSCULAR HEMOGLOBIN 29.2 pg (28.0-32.0); MEAN CORPUSCULAR VOLUME 86.9 fL (80.0-94.0); MEAN PLATELET VOLUME 8.3 fl (7.4-10.4); MONOCYTES % 11.9 % (2.0-8.0); NEUTROPHILS % 59.2 % (40.0-76.0); PLATELET 182 x1000/uL (130-400); RED BLOOD CELL COUNT 4.27 mill/uL (4.7-6.1)
[2019-01-28 07:32] LABS: INR 1.1; PROTHROMBIN TIME 11.2 sec (9.6-11.0)
[2019-01-28 07:42] LABS: CHLORIDE 107 mEq/L (98-107)
[2019-01-28 07:54] LABS: HDL CHOLESTEROL 33 mg/dL (40-59); LDL CHOLESTEROL 43 mg/dL (5-100)
[2019-01-28 08:00] VITALS: BP 120/79
[2019-01-28] MEDS: FUROSEMIDE 40MG/4ML VIAL IV SCH ×2 (08:19→17:17)
[2019-01-28] MEDS: AMIODARONE HCL 200 MG TABLET PO SCH (08:20)
[2019-01-28] MEDS: SPIRONOLACTONE 25MG TABLET PO SCH (08:20)
[2019-01-28] MEDS: ENOXAPARIN 80MG/0.8ML SYR SUBCUT SCH (08:20)
[2019-01-28] MEDS: CARVEDILOL 6.25 MG TABLET PO SCH (08:20)
[2019-01-28] MEDS: ALLOPURINOL 100 MG TABLET PO SCH (08:20)
[2019-01-28] MEDS: AMLODIPINE 10MG TABLET PO SCH (08:20)
[2019-01-28] MEDS ORDERED: APIXABAN 5 MG TABLET PO SCH (10:45)
[2019-01-28 12:00] VITALS: BP 92/48
[2019-01-28 16:00] VITALS: BP 127/79
[2019-01-28 20:00] VITALS: BP 131/79
[2019-01-28] MEDS: APIXABAN 5 MG TABLET PO SCH (21:03)
[2019-01-28] MEDS: ATORVASTATIN CALCIUM 40MG TABLET PO SCH (21:03)
[2019-01-28 23:23] LABS: *BARBITURATES SCREEN URINE NEGATIVE (NEGATIVE); *BENZODIAZEPINES SCREEN URINE NEGATIVE (NEGATIVE)
[2019-01-28 23:24] LABS: *AMPHETAMINES SCREEN URINE NEGATIVE (NEGATIVE); *COCAINE SCREEN URINE NEGATIVE (NEGATIVE); CANNABINOID URINE SCREEN NEGATIVE (NEGATIVE); METHADONE URINE SCREEN NEGATIVE (NEGATIVE); OPIATES URINE SCREEN NEGATIVE (NEGATIVE); PHENCYCLIDINE URINE SCREEN NEGATIVE (NEGATIVE)
[2019-01-29] VITALS: BP 124/67
[2019-01-29] MEDS: LORAZEPAM 2MG/ML CPJ IV PRN ×3 (01:15→17:02)
[2019-01-29 04:00] VITALS: BP 116/59
[2019-01-29 07:59] VITALS: BP 107/66
[2019-01-29] MEDS: ALLOPURINOL 100 MG TABLET PO SCH (09:00)
[2019-01-29] MEDS: AMLODIPINE 10MG TABLET PO SCH (09:00)
[2019-01-29] MEDS: APIXABAN 5 MG TABLET PO SCH ×2 (09:30→21:04)
[2019-01-29] MEDS: AMIODARONE HCL 200 MG TABLET PO SCH (09:31)
[2019-01-29] MEDS: SPIRONOLACTONE 25MG TABLET PO SCH (09:31)
[2019-01-29] MEDS: FUROSEMIDE 40MG/4ML VIAL IV SCH ×2 (09:31→17:01)
[2019-01-29 10:15] LABS: HEMATOCRIT. 40.8 % (42.0-52.0); HEMOGLOBIN. 13.8 g/dL (14.0-18.0); LYMPHOCYTES % 19.5 % (20.0-50.0); MEAN CORPUSCULAR HEMOGLOBIN 29.4 pg (28.0-32.0); MEAN PLATELET VOLUME 8.3 fl (7.4-10.4); MONOCYTES % 11.9 % (2.0-8.0); NEUTROPHILS % 66.6 % (40.0-76.0); PLATELET 169 x1000/uL (130-400); RED BLOOD CELL COUNT 4.69 mill/uL (4.7-6.1); RED CELL DISTRIBUTION WIDTH 15.9 % (11.6-14.6)
[2019-01-29 10:26] LABS: CHLORIDE 103 mEq/L (98-107)
[2019-01-29 12:00] VITALS: BP 115/69
[2019-01-29 16:00] VITALS: BP 107/77
[2019-01-29] MEDS: ACETAMINOPHEN 325MG TABLET PO PRN (19:27)
[2019-01-29 20:00] VITALS: BP 107/65
[2019-01-29] MEDS: ATORVASTATIN CALCIUM 40MG TABLET PO SCH (21:03)
[2019-01-30] VITALS: BP 120/70
[2019-01-30] MEDS: LORAZEPAM 2MG/ML CPJ IV PRN (00:48)
[2019-01-30 04:00] VITALS: BP 105/52
[2019-01-30] MEDS: AMLODIPINE 10MG TABLET PO SCH (09:00)
[2019-01-30] MEDS: AMIODARONE HCL 200 MG TABLET PO SCH (10:13)
[2019-01-30] MEDS: FUROSEMIDE 40MG/4ML VIAL IV SCH (10:15)
[2019-01-30] MEDS: APIXABAN 5 MG TABLET PO SCH (10:15)
[2019-01-30] MEDS: SPIRONOLACTONE 25MG TABLET PO SCH (10:15)
[2019-01-30] MEDS: ALLOPURINOL 100 MG TABLET PO SCH (10:15)
[2019-01-30 13:15] VITALS: BP 107/47
== END 2019-01-30 14:04 | disposition home or self-care (01) | DRG 292 ==
LOC: ER 03:45 → 5WST 05:15 → SUPCPDRO 07:05 → ENRESERV 12:12
PROVIDERS: ADMIT Hospitalist; ATTEND Hospitalist
DX: I11.0 Hypertensive heart disease with heart failure (principal); D68.59 Other primary thrombophilia; I48.92 Unspecified atrial flutter; I50.43 Acute on chronic combined systolic (congestive) and diastolic (congestive) heart failure; I42.0 Dilated cardiomyopathy; F41.9 Anxiety disorder, unspecified; I25.10 Atherosclerotic heart disease of native coronary artery without angina pectoris; E78.00 Pure hypercholesterolemia, unspecified; F19.10 Other psychoactive substance abuse, uncomplicated; E78.5 Hyperlipidemia, unspecified; I27.20 Pulmonary hypertension, unspecified; I48.0 Paroxysmal atrial fibrillation; M10.9 Gout, unspecified; Z79.01 Long term (current) use of anticoagulants; Z91.19 Patient's noncompliance with other medical treatment and regimen; Z79.899 Other long term (current) drug therapy; Z90.49 Acquired absence of other specified parts of digestive tract
CPT/HCPCS: 36415; 71045; 80048; 80061; 80305; 82550; 83735; 83880; 84484; 93005; 93970; 96372; 96374; 99285; J1650; J1940; J2060

== ENCOUNTER 2019-02-12 18:22 | Emergency (ER) | payer OTHER ==
[~2019-02-12] VITALS: Ht 180.3 cm; Wt 100.0 kg
[~2019-02-12 18:22] MED LIST changes: +AMI2 PO; +APIX5TAB PO
[2019-02-12] MEDS ORDERED: ONDANSETRON HCL 4MG/2ML INJ IV STA (22:13)
[2019-02-12] MEDS ORDERED: ASPIRIN 81MG TABLET PO ONE (22:15)
[2019-02-12 22:56] LABS: HEMOGLOBIN. 13.3 g/dL (14.0-18.0); MEAN CORPUSCULAR HEMOGLOBIN 28.8 pg (28.0-32.0); MEAN CORPUSCULAR VOLUME 86.5 fL (80.0-94.0); MEAN PLATELET VOLUME 7.5 fl (7.4-10.4); PLATELET 226 x1000/uL (130-400); RED BLOOD CELL COUNT 4.62 mill/uL (4.7-6.1); RED CELL DISTRIBUTION WIDTH 15.4 % (11.6-14.6)
[2019-02-12 23:00] LABS: CHLORIDE 101 mEq/L (98-107)
[2019-02-12 23:12] LABS: PLATELET ESTIMATE NORMAL
[2019-02-12] MEDS ORDERED: ONDANSETRON 4MG ODT PO ONE (23:15)
[2019-02-12] MEDS ORDERED: SODIUM CHLORIDE 0.9% 500 ML IV ONE (23:45)
[2019-02-13 02:56] VITALS: BP 112/58
== END 2019-02-13 02:58 | disposition home or self-care (01) ==
LOC: ER 20:57
DX: E86.0 Dehydration (principal); I11.0 Hypertensive heart disease with heart failure; I50.9 Heart failure, unspecified; N28.9 Disorder of kidney and ureter, unspecified; F41.9 Anxiety disorder, unspecified; E78.00 Pure hypercholesterolemia, unspecified; I48.91 Unspecified atrial fibrillation; I25.10 Atherosclerotic heart disease of native coronary artery without angina pectoris; Z79.01 Long term (current) use of anticoagulants; Z90.49 Acquired absence of other specified parts of digestive tract; Z98.61 Coronary angioplasty status
CPT/HCPCS: 36415; 71045; 80053; 83880; 84484; 85025; 93005; 96360; 96361; 99284; J7040

== ENCOUNTER 2019-03-22 17:10 | Emergency (ER) | payer OTHER ==
[~2019-03-22] VITALS: Ht 180.3 cm; Wt 99.0 kg
[2019-03-22] MEDS ORDERED: KETOROLAC 30MG/ML VIAL IV ONE (23:00)
[2019-03-22] MEDS ORDERED: FUROSEMIDE 100MG/10ML VIAL IVP ONE (23:00)
[2019-03-22] MEDS ORDERED: KETOROLAC 15MG/ML VIAL IV NR (23:30)
[2019-03-23] MEDS ORDERED: FUROSEMIDE 40MG TABLET PO ONE
[2019-03-23 03:32] VITALS: BP 146/90
== END 2019-03-23 03:35 | disposition home or self-care (01) ==
LOC: ER 20:46
DX: R60.0 Localized edema (principal); Z91.14 Patient's other noncompliance with medication regimen; I11.0 Hypertensive heart disease with heart failure; I50.9 Heart failure, unspecified; E78.00 Pure hypercholesterolemia, unspecified; F41.9 Anxiety disorder, unspecified; I25.10 Atherosclerotic heart disease of native coronary artery without angina pectoris; I48.91 Unspecified atrial fibrillation; Z90.49 Acquired absence of other specified parts of digestive tract; Z98.61 Coronary angioplasty status; Z79.82 Long term (current) use of aspirin; Z79.899 Other long term (current) drug therapy
CPT/HCPCS: 96374; 99283; J1885; J1940

== ENCOUNTER 2019-03-24 01:20 | Emergency (ER) | payer OTHER ==
[~2019-03-24] VITALS: Ht 177.8 cm; Wt 125.0 kg
[2019-03-24] MEDS ORDERED: FUROSEMIDE 40MG TABLET PO ONE (02:00)
[2019-03-24] MEDS ORDERED: KETOROLAC 60MG/2ML VIAL IM ONE (02:00)
[2019-03-24 04:49] VITALS: BP 150/80
== END 2019-03-24 04:51 | disposition home or self-care (01) ==
LOC: ER 01:20
DX: R60.0 Localized edema (principal); I48.91 Unspecified atrial fibrillation; I11.0 Hypertensive heart disease with heart failure; I50.9 Heart failure, unspecified; E78.00 Pure hypercholesterolemia, unspecified; I49.9 Cardiac arrhythmia, unspecified; Z90.89 Acquired absence of other organs; Z98.890 Other specified postprocedural states; Z79.82 Long term (current) use of aspirin; Z79.899 Other long term (current) drug therapy
CPT/HCPCS: 96372; 99283; J1885

== ENCOUNTER 2019-05-15 09:39 | Emergency (ER) | payer OTHER ==
[~2019-05-15] VITALS: Ht 175.3 cm; Wt 90.0 kg
[2019-05-15] MEDS ORDERED: MORPHINE SULFATE 4 MG/ML CPJ (NOT FOR IM USE) IV STA (10:32)
[2019-05-15] MEDS ORDERED: ONDANSETRON HCL 4MG/2ML INJ IV STA (10:32)
[2019-05-15] MEDS ORDERED: SODIUM CHLORIDE 0.9% 1,000 ML IV ONE (10:32)
[2019-05-15 11:12] LABS: BASOPHILS % 0.9 % (0.0-2.0); EOSINOPHILS % 2.6 % (0.0-5.0); LYMPHOCYTES % 24.9 % (20.0-50.0); MEAN CORPUSCULAR HEMOGLOBIN 29.2 pg (28.0-32.0); MEAN PLATELET VOLUME 7.6 fl (7.4-10.4); MONOCYTES % 12.5 % (2.0-8.0); NEUTROPHILS % 59.1 % (40.0-76.0); PLATELET 187 x1000/uL (130-400); RED BLOOD CELL COUNT 4.47 mill/uL (4.7-6.1); RED CELL DISTRIBUTION WIDTH 14.9 % (11.6-14.6)
[2019-05-15 11:15] LABS: CHLORIDE 107 mEq/L (98-107)
[2019-05-15 11:21] LABS: PROTHROMBIN TIME 10.7 sec (9.6-11.0)
[2019-05-15 14:19] VITALS: BP 118/67
== END 2019-05-15 14:27 | disposition home or self-care (01) ==
LOC: ER 09:39
DX: M10.9 Gout, unspecified (principal); I11.0 Hypertensive heart disease with heart failure; I50.9 Heart failure, unspecified; I48.91 Unspecified atrial fibrillation; Z98.61 Coronary angioplasty status; Z90.49 Acquired absence of other specified parts of digestive tract; Z79.01 Long term (current) use of anticoagulants
CPT/HCPCS: 36415; 73590; 80053; 84550; 85025; 85610; 85651; 86140; 96361; 96374; 96375; 99284; J2270; J2405; J7030

== ENCOUNTER 2019-05-16 13:43 | Emergency (ER) | payer OTHER ==
[~2019-05-16] VITALS: Ht 177.8 cm; Wt 100.0 kg
[2019-05-16] MEDS ORDERED: KETOROLAC 30MG/ML VIAL IM ONE (15:15)
[2019-05-16 15:18] VITALS: BP 126/74
== END 2019-05-16 18:51 | disposition home or self-care (01) ==
LOC: ER 13:43
DX: M79.662 Pain in left lower leg (principal); I48.91 Unspecified atrial fibrillation; I11.0 Hypertensive heart disease with heart failure; I50.9 Heart failure, unspecified; M10.9 Gout, unspecified; Z98.61 Coronary angioplasty status; Z90.49 Acquired absence of other specified parts of digestive tract; Z79.899 Other long term (current) drug therapy
CPT/HCPCS: 93971; 96372; 99284; J1885

== ENCOUNTER 2019-05-22 03:06 | Emergency (ER) | payer OTHER ==
[~2019-05-22] VITALS: Ht 180.3 cm; Wt 105.0 kg
[2019-05-22] MEDS ORDERED: LORAZEPAM 1MG TABLET PO ONE (04:30)
[2019-05-22] MEDS ORDERED: ACETAMINOPHEN 500MG TABLET PO ONE (04:30)
[2019-05-22 05:01] LABS: HEMATOCRIT. 38.2 % (42.0-52.0); HEMOGLOBIN. 13.1 g/dL (14.0-18.0); MEAN CORPUSCULAR HEMOGLOBIN 29.3 pg (28.0-32.0); MEAN CORPUSCULAR VOLUME 85.6 fL (80.0-94.0); MEAN PLATELET VOLUME 8.2 fl (7.4-10.4); PLATELET 161 x1000/uL (130-400); RED BLOOD CELL COUNT 4.46 mill/uL (4.7-6.1); RED CELL DISTRIBUTION WIDTH 14.8 % (11.6-14.6)
[2019-05-22 05:05] LABS: CHLORIDE 109 mEq/L (98-107)
[2019-05-22 05:25] LABS: ATYPICAL LYMPHOCYTES 4; PLATELET ESTIMATE NORMAL
[2019-05-22 08:47] VITALS: BP 138/86
== END 2019-05-22 08:48 | disposition home or self-care (01) ==
LOC: ER 03:06
DX: F41.9 Anxiety disorder, unspecified (principal); M79.605 Pain in left leg; I11.0 Hypertensive heart disease with heart failure; I50.9 Heart failure, unspecified; E78.00 Pure hypercholesterolemia, unspecified; I25.2 Old myocardial infarction; Z98.61 Coronary angioplasty status
CPT/HCPCS: 36415; 80048; 99283

== ENCOUNTER 2019-05-22 18:06 | Emergency (ER) | payer OTHER ==
[~2019-05-22] VITALS: Ht 165.1 cm; Wt 110.0 kg
[2019-05-23 01:30] VITALS: BP 154/70
== END 2019-05-23 01:46 | disposition home or self-care (01) ==
LOC: ER 18:06
DX: I11.0 Hypertensive heart disease with heart failure (principal); I50.9 Heart failure, unspecified; E78.00 Pure hypercholesterolemia, unspecified; I25.2 Old myocardial infarction; E78.5 Hyperlipidemia, unspecified; Z79.82 Long term (current) use of aspirin; Z79.899 Other long term (current) drug therapy
CPT/HCPCS: 71045; 93005; 99284

== ENCOUNTER 2019-06-12 06:28 | Emergency (ER) | payer OTHER ==
[~2019-06-12] VITALS: Ht 170.2 cm; Wt 120.0 kg
[2019-06-12] MEDS ORDERED: OXYCODONE HCL/ACETAMINOPHEN 5/325MG TABLET PO ONE (07:00)
[2019-06-12] MEDS ORDERED: KETOROLAC 60MG/2ML VIAL IM ONE (07:00)
[2019-06-12 09:18] VITALS: BP 150/89
== END 2019-06-12 09:59 | disposition home or self-care (01) ==
LOC: ER 06:28
DX: M10.9 Gout, unspecified (principal); I11.0 Hypertensive heart disease with heart failure; I50.9 Heart failure, unspecified; I25.2 Old myocardial infarction; E78.00 Pure hypercholesterolemia, unspecified; F17.210 Nicotine dependence, cigarettes, uncomplicated; Z79.82 Long term (current) use of aspirin; Z79.01 Long term (current) use of anticoagulants
CPT/HCPCS: 96372; 99283; J1885

== ENCOUNTER 2019-07-02 04:41 | Inpatient (IN) | payer OTHER ==
[~2019-07-02] VITALS: Ht 180.3 cm; Wt 104.3 kg
[2019-07-02] MEDS ORDERED: KETOROLAC 30MG/ML VIAL IV STA (06:23)
[2019-07-02 06:54] LABS: HEMATOCRIT. 38.3 % (42.0-52.0); MEAN CORPUSCULAR HEMOGLOBIN 29.4 pg (28.0-32.0); MEAN CORPUSCULAR VOLUME 86.7 fL (80.0-94.0); MEAN PLATELET VOLUME 9.4 fl (7.4-10.4); PLATELET 212 x1000/uL (130-400); RED BLOOD CELL COUNT 4.41 mill/uL (4.7-6.1); RED CELL DISTRIBUTION WIDTH 14.4 % (11.6-14.6)
[2019-07-02 06:59] LABS: CHLORIDE 107 mEq/L (98-107)
[2019-07-02 07:42] LABS: PLATELET ESTIMATE NORMAL
[2019-07-02] MEDS ORDERED: FUROSEMIDE 40MG/4ML VIAL IVP ONE (08:15)
[2019-07-02] MEDS ORDERED: ASPIRIN 81MG TABLET PO ONE (08:15)
[2019-07-02 10:02] LABS: CLARITY URINE CLEAR (CLEAR); COLOR URINE YELLOW (YELLOW); KETONES URINE NEGATIVE (NEGATIVE); LEUKOCYTE ESTERASE URINE NEGATIVE (NEGATIVE); NITRITE URINE NEGATIVE (NEGATIVE); OCCULT BLOOD URINE NEGATIVE (NEGATIVE); PROTEIN URINE NEGATIVE (NEGATIVE); SPECIFIC GRAVITY URINE 1.016 (1.005-1.030)
[2019-07-02] MEDS: SODIUM CHLORIDE 0.9% INJ 3ML FLUSH IVF SCH ×2 (14:00→22:00)
[2019-07-02] MEDS ORDERED: IPRATROPIUM/ALBUTEROL 0.5-3(2.5)MG/3ML NEB HHN PRN (14:00)
[2019-07-02] MEDS ORDERED: ONDANSETRON HCL 4MG/2ML INJ IV PRN (14:00)
[2019-07-02] MEDS ORDERED: MAGNESIUM/ALUMINUM HYDROXIDE/SIMETHICONE 30ML UDC PO PRN (14:00)
[2019-07-02] MEDS ORDERED: DIPHENHYDRAMINE 50MG/ML VIAL IV PRN (14:00)
[2019-07-02] MEDS ORDERED: GUAIFENESIN 200MG/10ML SUGAR FREE UDC PO PRN (14:00)
[2019-07-02] MEDS ORDERED: FUROSEMIDE 40MG/4ML VIAL IVP SCH (14:00)
[2019-07-02] MEDS ORDERED: CLONIDINE 0.1MG TABLET PO PRN (14:00)
[2019-07-02] MEDS ORDERED: APIXABAN 5 MG TABLET PO SCH ×2 (17:00→22:00)
[2019-07-02] MEDS ORDERED: ATORVASTATIN CALCIUM 40MG TABLET PO SCH (22:00)
[2019-07-02] MEDS ORDERED: CARVEDILOL 6.25 MG TABLET PO SCH (22:00)
[2019-07-02] MEDS ORDERED: LISINOPRIL 10MG TABLET PO NR (22:15)
[2019-07-03] MEDS ORDERED: TRAZODONE HCL 50MG TABLET PO NR (01:00)
[2019-07-03] MEDS: LORAZEPAM 1MG TABLET PO PRN ×2 (01:48→21:45)
[2019-07-03 02:30] VITALS: BP 135/75
[2019-07-03 04:46] VITALS: BP 143/74
[2019-07-03] MEDS: SODIUM CHLORIDE 0.9% INJ 3ML FLUSH IVF SCH ×2 (07:04→14:18)
[2019-07-03 08:00] VITALS: BP 145/77
[2019-07-03] MEDS ORDERED: CARVEDILOL 6.25 MG TABLET PO SCH (09:00)
[2019-07-03] MEDS ORDERED: LISINOPRIL 10MG TABLET PO SCH (09:00)
[2019-07-03] MEDS: APIXABAN 5 MG TABLET PO SCH ×2 (09:23→16:34)
[2019-07-03] MEDS: ASPIRIN 81MG EC TABLET PO SCH (09:23)
[2019-07-03] MEDS: COLCHICINE 0.6MG TABLET PO SCH ×2 (09:23→16:34)
[2019-07-03] MEDS: FUROSEMIDE 40MG/4ML VIAL IVP SCH ×2 (09:25→21:46)
[2019-07-03 12:00] VITALS: BP 132/67
[2019-07-03] MEDS: ACETAMINOPHEN 325MG TABLET PO PRN ×2 (12:19→22:12)
[2019-07-03 12:56] LABS: HEMATOCRIT. 39.4 % (42.0-52.0); HEMOGLOBIN. 13.2 g/dL (14.0-18.0); MEAN CORPUSCULAR VOLUME 86.8 fL (80.0-94.0); MEAN PLATELET VOLUME 8.5 fl (7.4-10.4); PLATELET 175 x1000/uL (130-400); RED BLOOD CELL COUNT 4.54 mill/uL (4.7-6.1); RED CELL DISTRIBUTION WIDTH 14.6 % (11.6-14.6)
[2019-07-03 13:02] LABS: CHLORIDE 108 mEq/L (98-107)
[2019-07-03 13:53] LABS: PLATELET ESTIMATE NORMAL
[2019-07-03 16:00] VITALS: BP 136/61
[2019-07-03] MEDS ORDERED: METHYLPREDNISOLONE SOD SUCC 125 MG/2 ML VIAL IV NR ×2 (18:45→20:00)
[2019-07-03 20:46] VITALS: BP 125/69
[2019-07-03] MEDS: LISINOPRIL 20MG TABLET PO SCH (21:46)
[2019-07-03] MEDS: TRAZODONE HCL 50MG TABLET PO SCH (21:46)
[2019-07-03] MEDS: CARVEDILOL 12.5MG TABLET PO SCH (21:46)
[2019-07-03] MEDS: ATORVASTATIN CALCIUM 40MG TABLET PO SCH (21:47)
[2019-07-03] MEDS: HYDROCODONE/ACETAMINOPHEN 10/325MG TABLET PO PRN (22:46)
[2019-07-04 00:26] VITALS: BP 131/65
[2019-07-04 04:00] VITALS: BP 114/65
[2019-07-04] MEDS: HYDROCODONE/ACETAMINOPHEN 10/325MG TABLET PO PRN ×2 (04:49→21:02)
[2019-07-04] MEDS: SODIUM CHLORIDE 0.9% INJ 3ML FLUSH IVF SCH ×3 (05:53→22:57)
[2019-07-04] MEDS: APIXABAN 5 MG TABLET PO SCH ×2 (08:40→19:28)
[2019-07-04] MEDS: ASPIRIN 81MG EC TABLET PO SCH (08:41)
[2019-07-04] MEDS: LISINOPRIL 20MG TABLET PO SCH ×3 (08:41→21:01)
[2019-07-04] MEDS: COLCHICINE 0.6MG TABLET PO SCH ×2 (08:41→19:27)
[2019-07-04 09:00] VITALS: BP 115/71
[2019-07-04] MEDS: CARVEDILOL 12.5MG TABLET PO SCH ×3 (10:45→21:01)
[2019-07-04] MEDS: FUROSEMIDE 40MG/4ML VIAL IVP SCH ×2 (10:52→19:27)
[2019-07-04 12:00] VITALS: BP 139/58
[2019-07-04 16:00] VITALS: BP 109/58
[2019-07-04 20:00] VITALS: BP 116/62
[2019-07-04] MEDS: TRAZODONE HCL 50MG TABLET PO SCH (21:00)
[2019-07-04] MEDS: ATORVASTATIN CALCIUM 40MG TABLET PO SCH (21:01)
[2019-07-04] MEDS: LORAZEPAM 1MG TABLET PO PRN (23:52)
[2019-07-05 00:33] VITALS: BP 111/54
[2019-07-05] MEDS: HYDROCODONE/ACETAMINOPHEN 10/325MG TABLET PO PRN ×2 (03:10→09:54)
[2019-07-05 04:00] VITALS: BP 115/52
[2019-07-05] MEDS: SODIUM CHLORIDE 0.9% INJ 3ML FLUSH IVF SCH ×3 (07:04→21:18)
[2019-07-05 08:00] VITALS: BP 97/69
[2019-07-05] MEDS: CARVEDILOL 12.5MG TABLET PO SCH ×2 (09:00→20:55)
[2019-07-05] MEDS: LISINOPRIL 20MG TABLET PO SCH ×2 (09:00→20:55)
[2019-07-05] MEDS: FUROSEMIDE 40MG/4ML VIAL IVP SCH ×2 (09:43→20:53)
[2019-07-05] MEDS: ASPIRIN 81MG EC TABLET PO SCH (09:43)
[2019-07-05] MEDS: COLCHICINE 0.6MG TABLET PO SCH ×3 (09:44→21:11)
[2019-07-05 12:00] VITALS: BP 108/78
[2019-07-05] MEDS: APIXABAN 5 MG TABLET PO SCH ×2 (14:28→16:28)
[2019-07-05] MEDS ORDERED: METHYLPREDNISOLONE SOD SUCC 125 MG/2 ML VIAL IV NR (15:00)
[2019-07-05 16:00] VITALS: BP 112/63
[2019-07-05 20:00] VITALS: BP 124/64
[2019-07-05] MEDS: ACETAMINOPHEN 325MG TABLET PO PRN (20:50)
[2019-07-05] MEDS: TRAZODONE HCL 50MG TABLET PO SCH (20:53)
[2019-07-05] MEDS: ATORVASTATIN CALCIUM 40MG TABLET PO SCH (20:55)
[2019-07-05] MEDS ORDERED: METF-414 MT (21:29)
[2019-07-05] MEDS ORDERED: ALBU18HF2 IH (21:29)
[2019-07-05] MEDS ORDERED: OMEP20CA5 MT (21:30)
[2019-07-05] MEDS ORDERED: LISI-604 MT (21:30)
[2019-07-05] MEDS ORDERED: TRAZ-251 MT (21:31)
[2019-07-05] MEDS ORDERED: COLC0.6C3 MT (21:33)
[2019-07-05] MEDS: LORAZEPAM 1MG TABLET PO PRN (22:20)
[2019-07-06 00:15] VITALS: BP 129/51
[2019-07-06] MEDS: HYDROCODONE/ACETAMINOPHEN 10/325MG TABLET PO PRN ×2 (02:34→22:21)
[2019-07-06 04:00] VITALS: BP 125/61
[2019-07-06] MEDS: SODIUM CHLORIDE 0.9% INJ 3ML FLUSH IVF SCH ×3 (06:05→21:37)
[2019-07-06] MEDS: COLCHICINE 0.6MG TABLET PO SCH ×3 (06:07→21:32)
[2019-07-06 08:00] VITALS: BP 130/86
[2019-07-06] MEDS: CARVEDILOL 12.5MG TABLET PO SCH ×2 (09:00→21:00)
[2019-07-06] MEDS: FUROSEMIDE 40MG/4ML VIAL IVP SCH ×2 (10:48→21:59)
[2019-07-06] MEDS: APIXABAN 5 MG TABLET PO SCH ×2 (10:49→18:24)
[2019-07-06] MEDS: LISINOPRIL 20MG TABLET PO SCH ×2 (10:50→21:32)
[2019-07-06] MEDS: ASPIRIN 81MG EC TABLET PO SCH (10:55)
[2019-07-06 16:00] VITALS: BP 122/69
[2019-07-06 16:52] LABS: CHLORIDE 105 mEq/L (98-107)
[2019-07-06 20:43] VITALS: BP 131/59
[2019-07-06] MEDS: ATORVASTATIN CALCIUM 40MG TABLET PO SCH (21:29)
[2019-07-06] MEDS: TRAZODONE HCL 50MG TABLET PO SCH (21:31)
[2019-07-07 00:04] VITALS: BP 104/53
[2019-07-07 04:00] VITALS: BP 120/67
[2019-07-07] MEDS: SODIUM CHLORIDE 0.9% INJ 3ML FLUSH IVF SCH ×3 (06:12→23:18)
[2019-07-07] MEDS: COLCHICINE 0.6MG TABLET PO SCH ×3 (06:12→22:10)
[2019-07-07 08:00] VITALS: BP 108/73
[2019-07-07] MEDS: CARVEDILOL 12.5MG TABLET PO SCH ×2 (09:00→22:14)
[2019-07-07] MEDS: LISINOPRIL 20MG TABLET PO SCH ×2 (09:15→22:13)
[2019-07-07] MEDS: APIXABAN 5 MG TABLET PO SCH ×2 (09:15→16:55)
[2019-07-07] MEDS: ASPIRIN 81MG EC TABLET PO SCH (09:15)
[2019-07-07] MEDS: FUROSEMIDE 40MG/4ML VIAL IVP SCH (09:20)
[2019-07-07 12:00] VITALS: BP 119/77
[2019-07-07] MEDS: HYDROCODONE/ACETAMINOPHEN 10/325MG TABLET PO PRN (13:18)
[2019-07-07 16:00] VITALS: BP 133/75
[2019-07-07] MEDS ORDERED: DEXT 5%/0.45% NACL 500ML 500 ML IV ONE (16:00)
[2019-07-07] MEDS ORDERED: TRAMADOL 50MG TABLET PO PRN (16:00)
[2019-07-07] MEDS: ACETAMINOPHEN 325MG TABLET PO PRN (19:55)
[2019-07-07 20:00] VITALS: BP 117/81
[2019-07-07] MEDS: TRAZODONE HCL 50MG TABLET PO SCH ×3 (21:00→22:19)
[2019-07-07] MEDS: ATORVASTATIN CALCIUM 40MG TABLET PO SCH (22:10)
[2019-07-07] MEDS: LORAZEPAM 1MG TABLET PO PRN (22:14)
[2019-07-08] VITALS: BP 116/75
[2019-07-08 04:00] VITALS: BP 119/67
[2019-07-08] MEDS: COLCHICINE 0.6MG TABLET PO SCH ×3 (06:26→21:39)
[2019-07-08] MEDS: SODIUM CHLORIDE 0.9% INJ 3ML FLUSH IVF SCH ×3 (06:27→21:46)
[2019-07-08 08:28] VITALS: BP 119/62
[2019-07-08] MEDS: APIXABAN 5 MG TABLET PO SCH ×2 (08:45→16:26)
[2019-07-08] MEDS: ASPIRIN 81MG EC TABLET PO SCH (08:45)
[2019-07-08] MEDS: CARVEDILOL 12.5MG TABLET PO SCH ×2 (08:46→21:39)
[2019-07-08] MEDS: LISINOPRIL 20MG TABLET PO SCH ×2 (08:47→21:38)
[2019-07-08 12:26] VITALS: BP 100/68
[2019-07-08 16:20] VITALS: BP 112/69
[2019-07-08 20:49] VITALS: BP 128/83
[2019-07-08] MEDS: TRAZODONE HCL 50MG TABLET PO SCH (21:38)
[2019-07-08] MEDS: ATORVASTATIN CALCIUM 40MG TABLET PO SCH (21:39)
[2019-07-09 00:58] VITALS: BP 128/59
[2019-07-09 04:00] VITALS: BP 102/52
[2019-07-09] MEDS: SODIUM CHLORIDE 0.9% INJ 3ML FLUSH IVF SCH ×3 (06:28→21:08)
[2019-07-09] MEDS: COLCHICINE 0.6MG TABLET PO SCH ×2 (06:28→14:00)
[2019-07-09 08:00] VITALS: BP 111/68
[2019-07-09] MEDS: CARVEDILOL 12.5MG TABLET PO SCH ×2 (09:00→21:00)
[2019-07-09] MEDS: APIXABAN 5 MG TABLET PO SCH ×2 (09:37→16:47)
[2019-07-09] MEDS: LISINOPRIL 20MG TABLET PO SCH ×2 (09:37→21:08)
[2019-07-09] MEDS: ASPIRIN 81MG EC TABLET PO SCH (09:37)
[2019-07-09 12:00] VITALS: BP 124/68
[2019-07-09 16:00] VITALS: BP 149/62
[2019-07-09] MEDS ORDERED: DEXTROSE 50% WATER 50ML SYRINGE IV PRN (17:00)
[2019-07-09] MEDS: BLOOD SUGAR DIAGNOSTIC STRIP TEST SCH ×2 (17:45→21:08)
[2019-07-09] MEDS: INSULIN LISPRO 100 UNITS/ML SUBCUT SCH ×2 (17:45→21:00)
[2019-07-09] MEDS: ACETAMINOPHEN 325MG TABLET PO PRN (17:46)
[2019-07-09 20:00] VITALS: BP 127/68
[2019-07-09] MEDS: TRAZODONE HCL 50MG TABLET PO SCH (21:05)
[2019-07-09] MEDS: ATORVASTATIN CALCIUM 40MG TABLET PO SCH (21:06)
[2019-07-10] VITALS: BP 110/70
[2019-07-10 04:00] VITALS: BP 122/58
[2019-07-10] MEDS: SODIUM CHLORIDE 0.9% INJ 3ML FLUSH IVF SCH ×2 (05:27→13:51)
[2019-07-10] MEDS: ACETAMINOPHEN 325MG TABLET PO PRN (06:20)
[2019-07-10] MEDS: BLOOD SUGAR DIAGNOSTIC STRIP TEST SCH ×2 (06:44→12:49)
[2019-07-10] MEDS: INSULIN LISPRO 100 UNITS/ML SUBCUT SCH ×2 (07:46→12:50)
[2019-07-10 08:00] VITALS: BP 102/60
[2019-07-10] MEDS: LISINOPRIL 20MG TABLET PO SCH (09:00)
[2019-07-10] MEDS ORDERED: ALLOPURINOL 100 MG TABLET PO SCH (09:00)
[2019-07-10] MEDS: CARVEDILOL 12.5MG TABLET PO SCH (09:00)
[2019-07-10] MEDS ORDERED: FUROSEMIDE 40MG TABLET PO SCH (09:00)
[2019-07-10] MEDS: ASPIRIN 81MG EC TABLET PO SCH (09:37)
[2019-07-10] MEDS: APIXABAN 5 MG TABLET PO SCH (09:37)
[2019-07-10 11:30] VITALS: BP 102/60
[2019-07-10 12:42] VITALS: BP 105/75
== END 2019-07-10 13:18 | disposition home or self-care (01) | DRG 293 ==
LOC: ER 04:41 → EDBEDREQ 08:58 → ENRESERV 07-03 01:44 → 6WST 07-03 02:18
PROVIDERS: ADMIT Internal Medicine; ATTEND Internal Medicine
DX: I11.0 Hypertensive heart disease with heart failure (principal); I50.23 Acute on chronic systolic (congestive) heart failure; I42.9 Cardiomyopathy, unspecified; I25.118 Atherosclerotic heart disease of native coronary artery with other forms of angina pectoris; M19.90 Unspecified osteoarthritis, unspecified site; E66.01 Morbid (severe) obesity due to excess calories; J44.9 Chronic obstructive pulmonary disease, unspecified; I48.91 Unspecified atrial fibrillation; E78.00 Pure hypercholesterolemia, unspecified; M10.9 Gout, unspecified; Z79.899 Other long term (current) drug therapy; Z82.49 Family history of ischemic heart disease and other diseases of the circulatory system; Z90.49 Acquired absence of other specified parts of digestive tract; Z87.891 Personal history of nicotine dependence; Z91.14 Patient's other noncompliance with medication regimen; Z68.32 Body mass index [BMI] 32.0-32.9, adult
CPT/HCPCS: 36415; 71045; 80048; 81003; 82962; 83735; 83880; 84484; 84550; 93005; 93306; 93970; 97116; 97162; 99285; J1200; J1885; J1940; J2405; J2930

== ENCOUNTER 2019-07-21 15:22 | Inpatient (IN) | payer OTHER ==
[~2019-07-21] VITALS: Ht 180.3 cm; Wt 104.3 kg
[~2019-07-21 15:22] MED LIST changes: +ALBU18HF2 IH; -ALLO100T PO; +COLC0.6C3 MT; -COR6 PO; -FURO40TA5 PO; -HYDR50SY PO; +LISI-604 MT; +METF-414 MT; +OMEP20CA5 MT; +TRAZ-251 MT; -WARF5TAB76 PO
[2019-07-21] MEDS ORDERED: PREDNISONE 20MG TABLET PO ONE (18:45)
[2019-07-21] MEDS ORDERED: MORPHINE SULFATE 4 MG/ML CPJ (NOT FOR IM USE) IV ONE (18:45)
[2019-07-21] MEDS ORDERED: COLCHICINE 0.6MG TABLET PO ONE (18:45)
[2019-07-21 20:37] LABS: HEMATOCRIT. 46.6 % (42.0-52.0); HEMOGLOBIN. 15.4 g/dL (14.0-18.0); MEAN CORPUSCULAR HEMOGLOBIN 28.7 pg (28.0-32.0); MEAN CORPUSCULAR VOLUME 87.1 fL (80.0-94.0); MEAN PLATELET VOLUME 9.3 fl (7.4-10.4); PLATELET 146 x1000/uL (130-400); RED BLOOD CELL COUNT 5.36 mill/uL (4.7-6.1); RED CELL DISTRIBUTION WIDTH 14.3 % (11.6-14.6)
[2019-07-21 20:40] LABS: CHLORIDE 105 mEq/L (98-107)
[2019-07-21 21:43] LABS: PLATELET ESTIMATE NORMAL
[2019-07-21] MEDS ORDERED: FUROSEMIDE 100MG/10ML VIAL IVP ONE (21:45)
[2019-07-22] MEDS ORDERED: ONDANSETRON HCL 4MG/2ML INJ IV PRN (00:15)
[2019-07-22] MEDS ORDERED: MAGNESIUM/ALUMINUM HYDROXIDE/SIMETHICONE 30ML UDC PO PRN (00:15)
[2019-07-22] MEDS ORDERED: DOCUSATE SODIUM 100MG CAPSULE PO PRN (00:15)
[2019-07-22] MEDS ORDERED: ACETAMINOPHEN 325MG TABLET PO PRN (00:15)
[2019-07-22] MEDS ORDERED: CLONIDINE 0.1MG TABLET PO PRN (00:15)
[2019-07-22] MEDS ORDERED: DEXTROSE 50% WATER 50ML SYRINGE IV PRN (02:15)
[2019-07-22] MEDS: COLCHICINE 0.6MG TABLET PO SCH ×2 (02:18→08:50)
[2019-07-22 03:04] VITALS: BP 143/78
[2019-07-22 04:00] VITALS: BP 143/78
[2019-07-22] MEDS: BLOOD SUGAR DIAGNOSTIC STRIP TEST SCH ×2 (06:00→13:02)
[2019-07-22] MEDS: INDOMETHACIN 25MG CAPSULE PO SCH ×2 (06:00→13:38)
[2019-07-22 08:10] VITALS: BP 138/77
[2019-07-22] MEDS: INSULIN LISPRO 100 UNITS/ML SUBCUT SCH ×2 (08:50→13:34)
[2019-07-22] MEDS ORDERED: LISINOPRIL 20MG TABLET PO SCH (09:00)
[2019-07-22 11:41] VITALS: BP 139/59
[2019-07-22 13:05] VITALS: BP 131/78
[2019-07-22] MEDS ORDERED: INDO-14 GT (13:16)
== END 2019-07-22 15:27 | disposition home or self-care (01) | DRG 553 ==
LOC: ER 15:22 → EDBEDREQTM 22:02 → EDBEDREQ 22:02 → ENRESERV 22:31 → 7WST 07-22 01:54
PROVIDERS: ADMIT Hospitalist; ATTEND Hospitalist
DX: M10.9 Gout, unspecified (principal); I50.23 Acute on chronic systolic (congestive) heart failure; D68.59 Other primary thrombophilia; I11.0 Hypertensive heart disease with heart failure; I48.91 Unspecified atrial fibrillation; E78.00 Pure hypercholesterolemia, unspecified; I25.10 Atherosclerotic heart disease of native coronary artery without angina pectoris; Z90.49 Acquired absence of other specified parts of digestive tract; Z79.899 Other long term (current) drug therapy; Z79.84 Long term (current) use of oral hypoglycemic drugs; Z79.82 Long term (current) use of aspirin
CPT/HCPCS: 36415; 71045; 82962; 83880; 84550; 93005; 93970; 96374; 99285; J1815; J1940; J2270; J7512

== ENCOUNTER 2019-07-27 01:35 | Emergency (ER) | payer OTHER ==
[~2019-07-27] VITALS: Ht 180.3 cm; Wt 230.0 kg
[~2019-07-27 01:35] MED LIST changes: +INDO-14 GT
[2019-07-27] MEDS ORDERED: METOCLOPRAMIDE HCL 10MG TABLET PO ONE (06:30)
[2019-07-27] MEDS ORDERED: LORAZEPAM 1MG TABLET PO ONE (06:30)
[2019-07-27] MEDS ORDERED: IBUPROFEN 600MG TABLET PO ONE (06:30)
[2019-07-27 07:50] VITALS: BP 148/92
== END 2019-07-27 07:51 | disposition home or self-care (01) ==
LOC: ER 01:35
DX: R51 Headache (principal); I11.0 Hypertensive heart disease with heart failure; I50.9 Heart failure, unspecified; M10.9 Gout, unspecified; Z79.82 Long term (current) use of aspirin; Z90.49 Acquired absence of other specified parts of digestive tract; Z98.62 Peripheral vascular angioplasty status
CPT/HCPCS: 93005; 99284; J8597

== ENCOUNTER 2019-08-06 17:09 | Emergency (ER) | payer OTHER ==
[~2019-08-06] VITALS: Ht 180.3 cm; Wt 105.0 kg
[2019-08-06 17:23] VITALS: BP 176/110
== END 2019-08-06 18:49 | disposition left against medical advice (07) ==
LOC: ER 17:27
DX: R51 Headache (principal); I11.0 Hypertensive heart disease with heart failure; I50.9 Heart failure, unspecified; R06.00 Dyspnea, unspecified; F41.9 Anxiety disorder, unspecified; F14.10 Cocaine abuse, uncomplicated; F12.10 Cannabis abuse, uncomplicated; F17.200 Nicotine dependence, unspecified, uncomplicated; Z79.899 Other long term (current) drug therapy; Z79.82 Long term (current) use of aspirin; Z90.49 Acquired absence of other specified parts of digestive tract; Z98.890 Other specified postprocedural states
CPT/HCPCS: 93005; 99283